=== PATIENT | male | born 1935 | race Caucasian/White ===

== ENCOUNTER 2019-04-06 10:39 | Inpatient (IN) | payer MEDICARE ==
--- OUTSIDE RECORDS SUMMARY | 2019-04-06 11:07 | XMS REPORT | Continuity of Care Document ---
:1935 External Reference #:[id number] Author Name Dayton Foy M.D. (transmitted by agent of provider Natacha Espinosa) Address [address] [place] [address] Care Team Providers Name Role Phone Fidencio Rodriguez M.D. Care Team Information Urgent Care Nurse Practitioner [phone] Problems Description No Information Available Social History Type Date Description Comments Sex Unknown Tobacco Use Start: Unknown End: Unknown Quit - age unknown ETOH Use Quit Using Alcohol. Allergies, Adverse Reactions, Alerts Description No Known Drug Allergies Medications Active Medications SIG Qnty Indications Ordering Provider Date Blood Pressure pt unaware of Unknown Medication name Gout Medication pt unaware of Unknown name Cholesterol Medication pt unaware of Unknown name Immunizations Description No Information Available Vital Signs Date Vital Result Comment 03/07/2019 12:48pm Weight 195.00 lb Height 68 inches 5'8" BMI (Body Mass Index) 29.6 kg/m2 BP Systolic 160 mmHg BP Diastolic 89 mmHg Heart Rate 41 /min O2 % BldC Oximetry 98 % Body Temperature 97.9 F Pain Level 0 01/17/2019 12:38pm Weight 195.00 lb Height 68 inches 5'8" BMI (Body Mass Index) 29.6 kg/m2 BP Systolic 164 mmHg BP Diastolic 92 mmHg Heart Rate 36 /min O2 % BldC Oximetry 98 % Body Temperature 98.2 F Pain Level 0 Results Description No Information Available Procedures Date Code Description Status 01/17/2019 99655 Tympanometry Completed 01/17/2019 02817 Audiometry, Comprehensive Completed Medical Devices Description No Information Available Encounters Type Date Location Provider Dx Diagnosis Office Visit 01/17/2019 [facility] Dayton Foy, H90.3 Sensorineural hearing 1:00p M.D. loss, bilateral H61.23 Impacted cerumen, bilateral Assessments Date Code Description Provider 01/17/2019 H90.3 Sensorineural hearing loss, bilateral Dayton Foy M.D. 01/17/2019 H61.23 Impacted cerumen, bilateral Dayton Foy M.D. Plan of Treatment Future Appointment(s):04/25/2019 12:00 pm - Dayton Foy M.D. at Main Office Functional Status Description No Information Available Mental Status Description No Information Available Referrals Description No Information Available
[2019-04-06] MEDS ORDERED: NS 0.9% 1000 ML** 1,000 ML IV ONE (11:19)
--- NOTE | 2019-04-06 11:28 | ED ---
Syncope/Near Syncope - HPI Summary HPI Summary: This pt is an 83 Y/O M presenting to [facility] by EMS and accompanied by his son for a CC of a syncopal episode that occurred while he was in [facility] today [employer]. His son states that he stood up and then went unconscious. He denies any CP, SOB , dizziness, N/V, fevers, chills, and headaches. He has no known aggravating or alleviating symptoms. He has a PMHx of hypertension. 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 He - Allergies/Home Medications Allergies/Adverse Reactions: Allergies Allergy/AdvReac Type Severity Reaction Status Date / Time No Known Allergies Allergy Verified 04/06/19 12:13 Home Medications: Home Medications Allopurinol TAB* [Zyloprim 100 MG TAB*] 200 mg PO DAILY 04/06/19 [History Confirmed 04/06/19] Atenolol TAB* [Tenormin TAB* 25 MG] 50 mg PO DAILY 04/06/19 [History Confirmed 04/06/19] Atorvastatin* [Lipitor*] 40 mg PO DAILY 04/06/19 [History Confirmed 04/06/19] Cyanocobalamin TAB* [Vitamin B12 TAB*] 3,000 mcg PO DAILY 04/06/19 [History Confirmed 04/06/19] cloNIDine TAB* [Catapres 0.1 MG TAB*] 0.2 mg PO DAILY 04/06/19 [History Confirmed 04/06/19] PMH/Surg Hx/FS Hx/Imm Hx Previously Healthy: Yes Endocrine/Hematology History: Denies: Hx Diabetes Cardiovascular History: Reports: Hx Hypertension - Surgical History Surgical History: None - Immunization History Immunizations Up to Date: Yes Infectious Disease History: No Infectious Disease History: Denies: Traveled Outside the [place] in Last 30 Days - Family History Known Family History: Positive: Hypertension, Diabetes, Other - CA - Social History Occupation: Retired Lives: With Family Alcohol Use: None Hx Substance Use: No Substance Use Type: Reports: None Hx Tobacco Use: Yes Smoking Status (MU): Former Smoker Household Exposure: No Review of Systems Negative: Fever, Chills Negative: Chest Pain Negative: Shortness Of Breath Negative: Vomiting, Nausea Neurological: Negative - dizzy Positive: Syncope. Negative: Headache All Other Systems Reviewed And Are Negative: Yes Physical Exam - Summary Physical Exam Summary: VITAL SIGNS: Reviewed. GENERAL: Patient is a well-developed and nourished male who is lying comfortable in the stretcher. Patient is not in any acute respiratory distress. HEAD AND FACE: No signs of trauma. No ecchymosis, hematomas or skull depressions. No sinus tenderness. EYES: PERRLA, EOMI x 2, No injected conjunctiva, no nystagmus. EARS: Hearing grossly intact. Ear canals and tympanic membranes are within normal limits. MOUTH: Oropharynx within normal limits. NECK: Supple, trachea is midline, no adenopathy, no JVD, no carotid bruit, no c- spine tenderness, neck with full ROM CHEST: Symmetric, no tenderness at palpation LUNGS: Clear to auscultation bilaterally. No wheezing or crackles. CVS: Bradycardia and a regular rhythm, S1 and S2 present, no murmurs or gallops appreciated. ABDOMEN: Soft, non-tender. No signs of distention. No rebound no guarding, and no masses palpated. Bowel sounds are normal. EXTREMITIES: FROM in all major joints, no edema, no cyanosis or clubbing. NEURO: Alert and oriented x 3. No acute neurological deficits. Speech is normal and follows commands. SKIN: Dry and warm Triage Information Reviewed: Yes Vital Signs On Initial Exam: Initial Vitals Temp Pulse Resp BP Pulse Ox 97.7 F 42 18 111/65 96 04/06/19 10:54 04/06/19 10:54 04/06/19 10:54 04/06/19 10:54 04/06/19 10:54 Vital Signs Reviewed: Yes Procedures - Sedation Patient Received Moderate/Deep Sedation with Procedure: No Diagnostics - Vital Signs Vital Signs Temp Pulse Resp BP Pulse Ox 04/06/19 10:54 97.7 F 42 18 111/65 96 - Laboratory Result Diagrams: 04/06/19 11:43 04/06/19 14:22 Lab Statement: Any lab studies that have been ordered have been reviewed, and results considered in the medical decision making process. - Radiology CXR Radiology Interpretation Completed By: Radiologist Summary of Radiographic Findings: No cvardiopulmonary disease is noted. ED physician has reviewed this report. - CT Brain CT CT Interpretation Completed By: Radiologist Summary of CT Findings: No intracranial mass or hemorrhage. ED physician has reviewed this report. - EKG 1058 Cardiac Rate: Bradycardia EKG Rhythm: Sinus Bradycardia ST Segment: Normal EKG Comparison: No Significant Change Summary of EKG Findings: NSR at 44 BPM, P waves, QRS complex, and T waves are within normal limits, T waves and intervals are normal, no ischemic changes. Interpreted by Dr. Anderson at 1100 04/06/19. 1126 Cardiac Rate: Bradycardia - 42 BPM EKG Rhythm: Sinus Bradycardia ST Segment: Normal Ectopy: None Summary of EKG Findings: NSR at 42 BPM, P waves, QRS complex, and T waves are within normal limits, T waves and intervals are normal, no ischemic changes. Interpreted by Dr. Anderson at 1130 04/06/19. Course/Dx Assessment/Plan: Patient is a 89-year-old male who presents to the emergency department with a chief complaint of having a syncopal episode while he was in [facility]. Patient has no complaints. EKG shows a sinus bradycardia at 44 bpm. Patient was placed on a security monitor, IV access was obtained and the patient was placed on IV fluids. Blood work w/o significant abnormality except for carbon dioxide 17, anion gap is 13, BUN is 34, creatinine is 3.47. Chest x-ray impression: No active cardiopulmonary disease. Head CT impression: No intracranial mass or hemorrhage. In the ED course the patient has remained stable. I discussed my physical exam and findings with Dr. Ruiz from the hospitalist services who accepted the patient for admission. - Diagnoses Provider Diagnoses: Syncope, Symptomatic bradycardia - Physician Notifications Discussed Care of Patient With: Lemuel Ruiz Time Discussed With Above Provider: 13:23 Instructed by Provider To: Admit As Inpatient Admit/Transition Orders Completed By ED Provider: Yes Discharge ED - Sign-Out/Discharge Documenting (check all that apply): Patient Departure - admitted - Discharge Plan Condition: Stable Disposition: ADMITTED TO [facility] - Billing Disposition and Condition Condition: STABLE Disposition: Admitted to [facility] - Attestation Statements Document Initiated by Chapincitoibjan: Yes Documenting Scribe: Tulio Churchill Provider For Whom Scribe is Documenting (Include Credential): Papo Anderson MD Scribe Attestation: ITulio, scribed for Papo Anderson MD on 04/06/19 at 1835. Scribe Documentation Reviewed: Yes Provider Attestation: The documentation as recorded by the Tulio fernandez accurately reflects the service I personally performed and the decisions made by ut, Papo Anderson MD Status of Scribe Document: Viewed
[2019-04-06 12:02] LABS: ABS Eosinophils 0.2 10^3/ul (0-0.6); ABS Monocytes 0.4 10^3/ul (0-0.8); ABS Neutrophils 2.4 10^3/ul (1.5-7.7); Eosinophil % 4.3 %; Hematocrit 45 % (42-52); Hemoglobin 14.4 g/dL (14.0-18.0); Mean Corpuscular HGB Conc 32 g/dL (31-36); Mean Corpuscular Hemoglobin 31 pg (27-31); Mean Corpuscular Volume 96 fL (80-94); Mean Platelet Volume 8.1 fL (7.4-10.4); Nucleated Red Blood Cells % 0.1; Platelet Count 151 10^3/uL (150-450); Red Blood Count 4.71 10^6 /uL (4.18-5.48); Red Cell Distribution Width 15 % (10-15); White Blood Count 4.1 10^3/uL (3.5-10.8)
[2019-04-06 12:13] LABS: Troponin I 0.01 ng/mL (<0.04)
[2019-04-06 12:42] LABS: Magnesium 1.9 mg/dL (1.9-2.7)
[2019-04-06 12:52] LABS: Anion Gap 13 mmol/L (2-11); CO2 Carbon Dioxide 17 mmol/L (22-32); Chloride 108 mmol/L (101-111); Potassium 4.1 mmol/L (3.5-5.0); Sodium 138 mmol/L (135-145)
[2019-04-06 12:53] LABS: ALT 13 U/L (7-52); Alkaline Phosphatase 81 U/L (34-104); BUN/Creatinine Ratio 9.8 (8-20); Blood Urea Nitrogen 34 mg/dL (6-24); EGFR African American 20.6 (>60); EGFR Non-African American 17.1 (>60); Glucose 95 mg/dL (70-100); TSH (Thyroid Stimulating Horm) 0.75 mcIU/mL (0.34-5.60)
[2019-04-06 13:18] LABS: Albumin/Globulin Ratio 1.3 (1-3); Globulin 3.1 g/dL (2-4); Total Protein 7.1 g/dL (6.4-8.9)
[2019-04-06 13:19] LABS: Calcium 10.4 mg/dL (8.6-10.3)
[2019-04-06] MEDS ORDERED: Ondansetron INJ* 2 MG/ML VIAL IV PRN (14:03)
[2019-04-06] MEDS ORDERED: Acetaminophen TAB* 325 MG PO PRN (14:03)
[2019-04-06 14:41] LABS: Activated Partial Thrombo Time 37.7 seconds (26.0-38.0); INR 1.09 (0.82-1.09)
[2019-04-06 14:53] LABS: Troponin I 0.02 ng/mL (<0.04)
[2019-04-06 16:09] LABS: EGFR African American 20.1 (>60); EGFR Non-African American 16.6 (>60)
--- NOTE | 2019-04-06 16:44 | HP ---
CC: Dr. Fidencio Rodriguez HISTORY AND PHYSICAL: DATE OF ADMISSION: 04/06/19 PRIMARY CARE PROVIDER: Dr. Fidencio Rodriguez CHIEF COMPLAINT: Syncope. HISTORY OF PRESENT ILLNESS: This is an 83-year-old male with past medical history of hypertension, hyperlipidemia, CKD, who presented to the emergency room after having a syncopal episode at [facility]. The patient reports that he woke up this morning, had breakfast and then got himself ready to go to [facility]. Throughout the entire day, he had been feeling lightheaded and feeling as if he was going to faint, he made it to [facility]. During the [facility] service, he was sitting down when other [facility] members noted that he became unresponsive. He was unresponsive for about a minute as per the documentation. There was no seizure like activity noted, there was no loss of urine or feces. When he came to, he did not have any memory of what happened. He did not have any chest pain or shortness of breath, he reports no nausea, no vomiting. In the emergency room, when I evaluated the patient he states that he is feeling kind of good right now. He reports no changes in his medications of late. There has been no fevers, no chills, no urinary symptoms. PAST MEDICAL HISTORY: Hypertension, hyperlipidemia, chronic kidney disease stage 3, gout. PAST SURGICAL HISTORY: None. HOME MEDICATIONS: Include: 1. Clonidine 0.2 mg daily. 2. Cyanocobalamin 3000 mcg daily. 3. Atenolol 50 mg daily. 4. Allopurinol 200 mg daily. 5. Atorvastatin 40 mg daily. ALLERGIES: None. FAMILY HISTORY: Mother: Had cancer as well as hypertension. Father: Stroke. SOCIAL HISTORY: The patient lives at [facility], is retired, former tobacco chewing. Currently does not smoke, no alcohol use and no more tobacco chew. ADVANCE CARE DIRECTIVE: The patient does not have any healthcare proxy, his brother will be the next step contact. Phone number is [phone] as well as [phone], the patient wishes to be full code at this point. REVIEW OF SYSTEMS: Full review of systems was done otherwise as listed in the HPI, otherwise is negative. PHYSICAL EXAMINATION GENERAL: This is an -[place] male, lying in the ER stretcher, in no acute distress. VITAL SIGNS: Blood pressure of 132/76, heart rate of 49, heart rate range has been from 39 to 69. Temperature is 97.7 Fahrenheit, respiratory rate of 16, saturation of 98% on room air. HEENT: Pupils are equal, round, reactive to light. Atraumatic, normocephalic. Oral mucosa is dry, there is no nystagmus. NECK: There is no carotid bruit. LUNGS: There is no tachypnea, no use of accessory muscles. Lungs are clear to auscultation bilaterally with no wheezing, rales, or rhonchi. HEART: There is no chest wall tenderness. Regular bradycardia, no murmurs. ABDOMEN: Bowel sounds are normoactive in all 4 quadrants. Abdomen is soft, nontender, nondistended. EXTREMITIES: There is no low extremity edema, no calf tenderness. SKIN: Poor skin turgor, there are no rashes or lesions identified. DIAGNOSTIC STUDIES/LAB DATA: Labs and imaging. The patient's WBC of 4.1, hemoglobin of 14.4, hematocrit of 45, platelets of 151. Sodium of 138, potassium 4.1, chloride of 108, bicarb of 17, BUN 34, creatinine of 3.47. GFR of 20.6, calcium of 10.4. TSH of 0.75. BNP of 20. The patient underwent an EKG, which showed sinus bradycardia. The patient had initial EKG done at 10:58 reveals sinus bradycardia with a heart rate of 44 and a repeat EKG done at 11:26 a.m. reveals sinus bradycardia at a heart rate of 42. The patient also had a CAT scan of the brain, which showed no acute intracranial pathology. The patient also had a chest x-ray which showed no active cardiopulmonary disease noted. IMPRESSION AND PLAN: 1. Syncope: Likely this is secondary to bradycardiac induced syncope. At this point, I will hold the patient's atenolol as well as clonidine. We will monitor the patient on telemetry. Orthostatic vitals are pending. We will obtain an echocardiogram. TSH is within normal limits. The patient also appears to be dehydrated. We will started the patient on IV fluids. Obtain daily EKG, monitor on telemetry. Check second and third troponin. 2. Essential hypertension: At this point, because of the patient's age and not having any heart disease or stroke history, would keep his hypertension goal at systolic of 150. I will hold his medications as described above due to bradycardia. If blood pressure becomes an issue and he becomes hypertensive, I would recommend starting the patient on chlorthalidone versus HCTZ as well as an amlodipine and also consider starting BRYN or ARB inhibitor given the fact he also has chronic kidney disease. 3. History of hyperlipidemia: Continue statins. 4. History of gout: Continue allopurinol. 5. Chronic kidney disease 3: At this point, the does not meet criteria for acute kidney injury, however, does appear to be dehydrated. Start the patient on IV fluids, monitor his kidney functions, monitor fluid status. 6. We will start the patient on regular diet. Activity as tolerated. 7. DVT prophylaxis: Sequential compression device. [id number]/[facility] #: [id number] FRANCO
[2019-04-06] MEDS: NS 0.9% 1000 ML** 1,000 ML IV SCH (16:58)
[2019-04-06] MEDS: Heparin VIAL(*) 5000 UNITS/ML VIAL (FIVE THOUSAND) SUBCUT SCH (21:43)
[2019-04-07] MEDS: NS 0.9% 1000 ML** 1,000 ML IV SCH ×2 (07:11→20:48)
[2019-04-07] MEDS: Heparin VIAL(*) 5000 UNITS/ML VIAL (FIVE THOUSAND) SUBCUT SCH ×2 (08:44→20:51)
[2019-04-07] MEDS: Atorvastatin* 40 MG TAB PO SCH (08:44)
[2019-04-07] MEDS: Allopurinol TAB* 100 MG PO SCH (08:45)
[2019-04-07] MEDS ORDERED: Cyanocobalamin TAB* 500 MCG PO SCH (09:00)
--- NOTE | 2019-04-07 11:46 | ECHO ---
*[facility]* [place] [address] Fax #: [phone] Transthoracic Echocardiogram Patient: Bradley العلي : 1935 Study Date: 04/07/2019 Age: 83 Gender: M HR: 57 bpm Height: 67 in /170.2 cm BSA: 1.91 m^2 Weight: 174.6 lb /79.4 kg BMI: 27.4 kg/m^2 *Gas Engine Performance Engineer: * Rosa Sullivan [facility] *Referring Physician: * Anushka Lu *Reading Physician: * Moshe Marrero MD Indications: Syncope. History: Functional status: Renal failure. Risk factors: Hypertension. Dyslipidemia. Conclusions Summary: - Left ventricle: Systolic function is normal. The estimated ejection fraction is 60-65%. Wall motion is normal; there are no regional wall motion abnormalities. - Right ventricle: Systolic function is normal. Systolic pressure is within the normal range. - Mitral valve: There is trace to mild regurgitation. - Aortic valve: There is no evidence of stenosis. There is trace to mild regurgitation. - Tricuspid valve: There is mild regurgitation. - Pericardium, extracardiac: There is no significant pericardial effusion. - Pulmonary arteries: Systolic pressure is within the normal range. - Study data: No prior study is available for comparison. Study data: Transthoracic echocardiogram. Procedure: Transthoracic echocardiography was performed. Image quality was good. Complete 2D, spectral Doppler, and color flow Doppler. Location: Bedside. Patient status: Inpatient. Patient room number: 448-01. No prior study is available for comparison. Rhythm: Bradycardia. Findings Left ventricle: The cavity size is normal. Wall thickness is mildly increased. Systolic function is normal. The estimated ejection fraction is 60-65%. Wall motion is normal; there are no regional wall motion abnormalities. There is no consistent Doppler evidence of clinically significant diastolic dysfunction. Right ventricle: The cavity size is mildly dilated. Systolic function is normal. Systolic pressure is within the normal range. Left atrium: The atrium is mildly dilated. Right atrium: The atrium is normal in size. Mitral valve: The leaflets are mildly thickened. There is no evidence of stenosis. There is trace to mild regurgitation. Aortic valve: The valve is trileaflet. The leaflets are mildly thickened. There is no evidence of stenosis. There is trace to mild regurgitation. Tricuspid valve: The leaflets are normal thickness. There is no evidence of stenosis. There is mild regurgitation. Pulmonic valve: The leaflets are normal thickness. There is no evidence of stenosis. There is trace regurgitation. Aorta: Aortic root: The aortic root is appears normal. Ascending aorta: The ascending aorta is appears normal. Aortic arch: The aortic arch is appears normal. Pericardium: There is no significant pericardial effusion. Pulmonary arteries: The main pulmonary artery is normal-sized. Systolic pressure is within the normal range. Systemic veins: Inferior vena cava: The vessel is normal in size. There is (>= 50%) respiratory change in the IVC dimension. Measurements Left ventricle Value Ref Aortic valve Value Ref REGULO, LAX 4.3 cm 4.2 - 5.8 Stephanie diam, ED 2.1 cm ----- ESD, LAX 2.5 cm 2.5 - 4.0 Peak v, S 1.63 m/sec ----- FS, LAX 42 % 25 - 43 VTI, S 28.4 cm ----- PW, ED, LAX (H) 1.1 cm 0.6 - 1.0 Mean grad, S 6.0 mm Hg ----- FS 42 % 25 - 43 Peak grad, S 10.6 mm Hg ----- PW, ED (H) 1.1 cm 0.6 - 1.0 LVOT/AV, VTI ratio 0.88 ----- PW/ID, ED 0.27 E', lat stephanie, TDI (L) 6.3 cm/sec >=10.0 Mitral valve Value Ref E/e', lat stephanie, 15 Peak E 0.94 m/sec ----- TDI Peak A 0.84 m/sec ----- E', med stephanie, TDI (L) 5.8 cm/sec >=7.0 Decel time 250 ms --- -- E/e', med stephanie, 16 Peak grad, D 3.5 mm Hg ----- TDI Peak E/A ratio 1.1 ----- E', avg, TDI 6.1 cm/sec E/e', avg, TDI (H) 15 <=14 Pulmonic valve Value Ref Peak v, S 0.68 m/sec ----- LVOT Value Ref Peak grad, S 2.0 mm Hg ----- Peak gabriel, S 1.1 m/sec VTI, S 25.0 cm Tricuspid valve Value Ref Mean grad, S 2 mm Hg TR peak v 2.74 m/sec <=2.8 Peak RV-RA grad, S 30 mm Hg ----- Ventricular septum Value Ref IVS, ED (H) 1.2 cm 0.6 - 1.0 Aortic root Value Ref Root diam 3.4 cm <4.1 Right ventricle Value Ref Root max diam, ED 3.4 cm <4.1 REGULO, LAX 4.0 cm REGULO minor ax, A4C (H) 3.8 cm 1.9 - 3.5 Ascending aorta Value Ref mid AAo AP diam, S 3.4 cm ----- Pressure, S 33 mm Hg Aortic arch Value Ref Left atrium Value Ref Arch diam 2.7 cm ----- AP dim, ES 3.20 cm 3.00 - 4.00 Decending aorta Value Ref ML dim, A4C 3.8 cm Tutu peak gabriel 0.64 m/sec ----- SI dim, A4C 5.4 cm Vol/bsa, ES, 1-p 26 ml/m^2 12 - 37 Pulmonary artery Value Ref A4C Pressure, S 31.0 mm Hg ----- Vol/bsa, ES, A/L (H) 40 ml/m^2 16 - 34 Inferior vena cava Value Ref Right atrium Value Ref Diam 2.0 cm ----- SI dim, ES 4.5 cm 3.4 - 5.3 ML dim, ES, A4C 4.4 cm 2.6 - 4.4 SI dim, ES, A4C 4.5 cm 3.4 - 5.3 Estimated RAP 3 mm Hg Legend: (L) and (H) dede values outside specified reference range. Prepared and electronically signed by Moshe Marrero MD 04/07/2019 11:46
--- NOTE | 2019-04-07 11:53 | PN ---
Subjective Date of Service: 04/07/19 Interval History: Patient came in after a syncopal event. He states he does not remember this event. He notes that he has had no dizziness, lightheadedness, syncopal events since then. He denies CP, SOB. Objective Active Medications: Acetaminophen (Tylenol Tab*) 650 mg PO Q6H PRN Allopurinol (Zyloprim Tab*) 200 mg PO DAILY DM Atorvastatin Calcium (Lipitor*) 40 mg PO DAILY DM Heparin Sodium (Porcine) (Heparin Vial(*)) 5,000 units SUBCUT Q12HR DM Sodium Chloride (Ns 0.9% 1000 Ml) 1,000 mls @ 75 mls/hr IV PER RATE DM Ondansetron HCl (Zofran Inj*) 4 mg IV Q6H PRN Vital Signs: Temp Pulse Resp BP Pulse Ox 97 F 44 20 145/73 100 04/07/19 07:58 04/07/19 07:58 04/07/19 07:58 04/07/19 07:58 04/07/19 07:58 Oxygen Devices in Use Now: None Appearance: Pt is sitting up in bed. He appears comfortable, in no acute distress. Eyes: No Scleral Icterus, PERRLA Ears/Nose/Mouth/Throat: NL Teeth, Lips, Gums, Clear Oropharnyx, Mucous Membranes Moist Neck: NL Appearance and Movements; NL JVP, Trachea Midline Respiratory: Symmetrical Chest Expansion and Respiratory Effort, Clear to Auscultation Cardiovascular: NL Sounds; No Murmurs; No JVD, No Edema, - - Bradycardia Abdominal: NL Sounds; No Tenderness; No Distention, No Hepatosplenomegaly Extremities: No Edema, No Clubbing, Cyanosis Neurological: Alert and Oriented x 3 Result Diagrams: 04/09/19 08:51 04/09/19 08:51 Assess/Plan/Problems-Billing Assessment: 83 yom PMHx HTN, HLD, CKD III presents after syncopal event. Tele shows sinus claude with up to 2.9 second pause. - Patient Problems (1) Syncope and collapse Comment: -Pt with syncope and collapse; does not recall event -Tele shows sinus claude, 2.9 second pause -Cardiology consulted -ECHO EF 60-65% -Continue IVF -Continue to hold atenolol, catapres, as this may have contributed to bradycardia (2) Hypertension Comment: -SBP 120-145's -Continue to hold home medications and monitor need for additional antihypertensives (3) HLD (hyperlipidemia) Comment: -Continue statin (4) Gout Comment: -Continue allopurinol (5) CKD (chronic kidney disease), stage III Comment: -CR at baseline (6) DVT prophylaxis Comment: -Heparin (7) Full code status Status and Disposition: Inpatient. Discharge when medically stable.
--- NOTE | 2019-04-07 17:11 | CONS ---
CC: Dr. Fidencio Rodriguez * CARDIOLOGY CONSULTATION: DATE OF CONSULT: 04/07/19 INDICATION FOR CONSULTATION: Syncope, bradycardia. HISTORY OF PRESENT ILLNESS: The patient is an 83-year-old gentleman with a history of hypertension, renal insufficiency, who came to the emergency room after presumed syncopal episode at [employer]. When speaking with the patient, he is not aware of what happened today. Apparently, he was at [employer] and had a witnessed syncopal episode. I do not have any documentation other than the history and physical. The patient was reportedly unresponsive for about a minute. There was no seizure activity. The patient came to the emergency room. In the emergency room, he was noted to be bradycardiac at 40 beats per minute. He denied any chest pain. He denied any palpitations. No orthopnea or PND. PAST MEDICAL HISTORY: Significant for: 1. Hypertension. 2. Hyperlipidemia. 3. Renal insufficiency. 4. Gout. PAST SURGICAL HISTORY: None. MEDICATIONS: Outpatient medications: 1. Clonidine 0.2 mg a day. 2. Cyanocobalamin 3000 mcg a day. 3. Atenolol 50 mg a day. 4. Allopurinol 20 mg a day. 5. Atorvastatin 40 mg a day. ALLERGIES: No known drug allergies. FAMILY HISTORY: Mother had a history of cancer and hypertension. Father had a history of stroke. SOCIAL HISTORY: He lives at [facility]. He is retired. He used to chew tobacco but does not anymore. He denies any smoking of tobacco. Rare alcohol. REVIEW OF SYSTEMS: Negative for fevers and chills. Negative for changes in bowel or bladder habits. Negative for change in weight. Other 12-point review is unremarkable. PHYSICAL EXAMINATION: Height is 5 feet 7 inches, weight is 188 pounds. Temperature 97.3, heart rate is 42, blood pressure 140/73, respiratory rate is 20, oxygen saturation 100% on 2 L. Sclerae anicteric. Oropharynx is pink without erythema. Carotids are 2+ without bruits. JVD is normal. Thyroid is normal. Cardiac Exam: S1, S2 without any murmurs, rubs, or gallops. Lungs are clear to auscultation bilaterally. There is no dullness to percussion. Abdomen is soft, nontender, nondistended with normoactive bowel sounds. Extremities show no edema. He has 1+ pulses in his dorsalis pedis and popliteal. The patient is awake, alert, and oriented. LABORATORY DATA/DIAGNOSTIC STUDIES: CBC within normal limits. Chemistry is within normal limits. BUN 34, creatinine 3.4, which is slightly worse than his baseline of 2.7 to 3. AST and ALT are normal. BNP is normal at 20. TSH is normal at 0.75. Echocardiogram showed normal LV size and systolic function. No significant valvular abnormalities. No pericardial effusion. IMPRESSION: This is an 83-year-old gentleman with a history of hypertension and renal insufficiency, who is admitted to the hospital because of the syncopal episode. While he is here in the hospital, his baseline heart rate showed sinus bradycardia at around 40 beats per minute. The patient is on atenolol and clonidine, which can lower the heart rate, both of which have been stopped at this point. For now my recommendation is to observe the patient for the next 24 to 48 hours , see what his heart rate does off of his rate lowering medications and then consider replacements for these medications for treatment of his hypertension. If his bradycardia persists, the patient would likely need a pacemaker because of his witnessed syncopal episode. [id number]/[facility] #: [id number] FRANCO
[2019-04-08] MEDS ORDERED: Influenza VAC *QUAD* 2019-20* 0.5 ML SYRINGE IM ONE (09:00)
[2019-04-08] MEDS ORDERED: Pneumococcal *Vac Polyvalent 0.5 ML VIAL IM ONE (09:00)
[2019-04-08] MEDS: Atorvastatin* 40 MG TAB PO SCH (10:16)
[2019-04-08] MEDS: amLODIPine TAB* 5 MG PO SCH (10:16)
[2019-04-08] MEDS: Allopurinol TAB* 100 MG PO SCH (10:16)
[2019-04-08] MEDS: Heparin VIAL(*) 5000 UNITS/ML VIAL (FIVE THOUSAND) SUBCUT SCH ×2 (10:17→21:14)
[2019-04-08] MEDS: NS 0.9% 1000 ML** 1,000 ML IV SCH ×2 (10:21→23:21)
[2019-04-08 10:35] LABS: ABS Eosinophils 0.3 10^3/ul (0-0.6); ABS Lymphocytes 1.4 10^3/ul (1.0-4.8); ABS Monocytes 0.3 10^3/ul (0-0.8); ABS Neutrophils 2.1 10^3/ul (1.5-7.7); Eosinophil % 6.1 %; Hematocrit 41 % (42-52); Hemoglobin 13.4 g/dL (14.0-18.0); Lymphocyte % 34.1 %; Mean Corpuscular HGB Conc 33 g/dL (31-36); Mean Corpuscular Hemoglobin 31 pg (27-31); Mean Corpuscular Volume 94 fL (80-94); Mean Platelet Volume 8.7 fL (7.4-10.4); Nucleated Red Blood Cells % 0.1; Platelet Count 144 10^3/uL (150-450); Red Blood Count 4.35 10^6 /uL (4.18-5.48); Red Cell Distribution Width 15 % (10-15); White Blood Count 4.1 10^3/uL (3.5-10.8)
[2019-04-08 10:52] LABS: Albumin 3.4 g/dL (3.2-5.2); Albumin/Globulin Ratio 1.1 (1-3); BUN/Creatinine Ratio 9.5 (8-20); Calcium 9.5 mg/dL (8.6-10.3); EGFR African American 23.9 (>60); EGFR Non-African American 19.7 (>60); Magnesium 1.6 mg/dL (1.9-2.7); Phosphorus 2.5 mg/dL (2.5-5.0); Potassium 3.9 mmol/L (3.5-5.0); Total Bilirubin 0.4 mg/dL (0.2-1.0); Total Protein 6.4 g/dL (6.4-8.9)
[2019-04-08] MEDS ORDERED: Magnesium Sulfate 1 GM IV* 1 GM/100 ML BAG IV ONE (14:12)
[2019-04-08] MEDS ORDERED: ceFAZolin 1 GM/10 ML flush(*) SYRINGE for pocket flush (cardiology) FLUSH ONE (15:59)
[2019-04-09] MEDS ORDERED: ceFAZolin 2 GM PREMIX in ORs 2 GM/50 ML BAG IVPB ONE (08:00)
[2019-04-09] MEDS ORDERED: Diazepam TAB(*) 5 MG PO ONE (08:00)
[2019-04-09] MEDS ORDERED: ceFAZolin VIAL 1 GM in NS *SYRINGE * * 10 ML ONE (08:00)
[2019-04-09] MEDS ORDERED: Diazepam TAB(*) 5 MG ONE (08:46)
[2019-04-09] MEDS ORDERED: Pneumococcal *Vac Polyvalent 0.5 ML VIAL IM ONE (09:00)
[2019-04-09 09:04] LABS: ABS Basophils 0.1 10^3/ul (0-0.2); ABS Eosinophils 0.2 10^3/ul (0-0.6); ABS Lymphocytes 1.6 10^3/ul (1.0-4.8); ABS Monocytes 0.4 10^3/ul (0-0.8); ABS Neutrophils 2.8 10^3/ul (1.5-7.7); Eosinophil % 4.4 %; Hematocrit 43 % (42-52); Hemoglobin 14.2 g/dL (14.0-18.0); Lymphocyte % 31.5 %; Mean Corpuscular HGB Conc 33 g/dL (31-36); Mean Corpuscular Hemoglobin 31 pg (27-31); Mean Corpuscular Volume 94 fL (80-94); Mean Platelet Volume 8.4 fL (7.4-10.4); Nucleated Red Blood Cells % 0.3; Platelet Count 153 10^3/uL (150-450); Red Blood Count 4.62 10^6 /uL (4.18-5.48); Red Cell Distribution Width 15 % (10-15); White Blood Count 5.1 10^3/uL (3.5-10.8)
[2019-04-09 09:14] LABS: Calcium 9.5 mg/dL (8.6-10.3); Magnesium 1.8 mg/dL (1.9-2.7); Potassium 4.2 mmol/L (3.5-5.0)
[2019-04-09 09:20] LABS: EGFR African American 26.6 (>60); EGFR Non-African American 21.9 (>60)
[2019-04-09 09:21] LABS: Urine Appearance Clear; Urine Bilirubin Negative (Negative); Urine Blood Negative (Negative); Urine Color Straw; Urine Glucose Negative (Negative); Urine Ketones Negative (Negative); Urine Nitrite Negative (Negative); Urine Protein Negative (Negative); Urine Specific Gravity 1.009 (1.010-1.030); Urine Urobilinogen Negative (Negative)
[2019-04-09] MEDS ORDERED: Midazolam* 1 MG/ML 5 ML VIAL (5 MG) ONE ×2 (09:55→11:29)
[2019-04-09] MEDS ORDERED: Lidocaine 1% INJ* 10 MG/ML 30 ML SDV ONE ×2 (09:55→10:51)
[2019-04-09] MEDS ORDERED: fentaNYL* 50 MCG/ML 2 ML VIAL (100 MCG VIAL) ONE (09:55)
[2019-04-09] MEDS ORDERED: Iodixanol 320 (CONTRAST) 100 ML SDV ONE (10:01)
[2019-04-09] MEDS ORDERED: Atenolol TAB* 50 MG PO ONE (14:00)
[2019-04-09] MEDS: amLODIPine TAB* 5 MG PO SCH (14:01)
[2019-04-09] MEDS: Allopurinol TAB* 100 MG PO SCH (14:01)
[2019-04-09] MEDS: Atorvastatin* 40 MG TAB PO SCH (14:01)
[2019-04-09] MEDS ORDERED: cloNIDine TAB* 0.1 MG PO ONE (15:20)
--- NOTE | 2019-04-09 18:56 | PN ---
Subjective Date of Service: 04/09/19 - CC: syncope Interval History: Pt very CHITIMACHA, hard to get a history from. Pt seen early this AM prior to pacer implant, no new c/o. Procedure details, risks benefits discussed. Post procedure the patient noted some mild incisional tenderness, otherwise was feeling well. Medications Active Medications: Acetaminophen (Tylenol Tab*) 650 mg PO Q6H PRN PRN Reason: MILD PAIN or TEMP > 100.4 Allopurinol (Zyloprim Tab*) 200 mg PO DAILY [facility] Last Admin: 04/09/19 14:01 Dose: 200 mg Amlodipine Besylate (Norvasc Tab*) 5 mg PO DAILY [facility] Last Admin: 04/09/19 14:01 Dose: 5 mg Atorvastatin Calcium (Lipitor*) 40 mg PO DAILY [facility] Last Admin: 04/09/19 14:01 Dose: 40 mg Sodium Chloride (Ns 0.9% 1000 Ml) 1,000 mls @ 75 mls/hr IV PER RATE [facility] Last Admin: 04/08/19 23:21 Dose: 75 mls/hr Cefazolin Sodium 1 gm/ Sodium (Chloride) 50 mls @ 200 mls/hr IVPB Q8H [facility] Stop: 04/10/19 10:14 Ondansetron HCl (Zofran Inj*) 4 mg IV Q6H PRN PRN Reason: NAUSEA Objective Vital Signs: Temp Pulse Resp BP Pulse Ox 97.5 F 60 20 165/87 94 04/09/19 07:23 04/09/19 16:06 04/09/19 14:02 04/09/19 17:23 04/09/19 16:06 Oxygen Devices in Use Now: None Appearance: Elderly gentleman, very CHITIMACHA, once he understands the questions very cooperative. NAD. Eyes: PERRLA Ears/Nose/Mouth/Throat: Clear Oropharnyx Neck: NL Appearance and Movements; NL JVP, Trachea Midline Respiratory: Symmetrical Chest Expansion and Respiratory Effort - diminished BS bases. Cardiovascular: RRR - high pitched SM LSB and soft low pithched murmur LSB. Abdominal: NL Sounds; No Tenderness; No Distention, No Hepatosplenomegaly Extremities: No Edema, No Clubbing, Cyanosis Skin: No Rash or Ulcers Neurological: Alert and Oriented x 3 - Severe CHITIMACHA. Lines/Tubes/Other Access: Clean, Dry and Intact Peripheral IV Laboratory Results: 04/09/19 08:51 04/09/19 08:51 INR (Anticoag Therapy) 1.09 (0.82-1.09) 04/06/19 14:22 APTT 37.7 seconds (26.0-38.0) 04/06/19 14:22 Total Bilirubin 0.40 mg/dL (0.2-1.0) 04/08/19 10:01 AST 19 U/L (13-39) 04/08/19 10:01 ALT 11 U/L (7-52) 04/08/19 10:01 Alkaline Phosphatase 65 U/L (34-104) 04/08/19 10:01 B-Natriuretic Peptide 20 pg/mL (<=100) 04/06/19 12:27 Total Protein 6.4 g/dL (6.4-8.9) 04/08/19 10:01 Albumin 3.4 g/dL (3.2-5.2) 04/08/19 10:01 Globulin 3.0 g/dL (2-4) 04/08/19 10:01 Albumin/Globulin Ratio 1.1 (1-3) 04/08/19 10:01 TSH 0.75 mcIU/mL (0.34-5.60) 04/06/19 11:43 04/06/19 04/06/19 04/06/19 11:43 14:22 20:31 Troponin I 0.01 0.02 0.01 Diagnostic Imaging: Patient Name: BRADLEY MALIK JR Medical Record#: [id number] Ordering Physician: Nina Sanders MD Acct.#: [id number] : 1935 Age: 83 Sex: M Location: [address] [place] [address]/TELEMETRY Exam Date: 04/09/19 1216 ADM Status: ADM IN Order Information: CHEST AP OR PORT Accession Number: [id number] CPT: 99178 Indication: Status post pacemaker implant. Single frontal view of the chest performed at 1503 hours was reviewed. Comparison is made with previous exam dated April 06, 2019. Cardiomegaly is noted. Interstitial edema consistent with vascular congestion is noted. Pacemaker leads are in place. No pneumothorax is noted. IMPRESSION: CARDIOMEGALY WITH INTERSTITIAL EDEMA. PACEMAKER LEADS ARE IN PLACE. NO PNEUMOTHORAX IS NOTED. <Electronically signed by Penny Garnica MD in OV> 04/09/19 1521 Dictated By: Penny Garnica MD *[facility]* [place] [address] Fax #: [phone] Transthoracic Echocardiogram Patient: Bradley Malik : 1935 Study Date: 04/07/2019 Summary: - Left ventricle: Systolic function is normal. The estimated ejection fraction is 60-65%. Wall motion is normal; there are no regional wall motion abnormalities. - Right ventricle: Systolic function is normal. Systolic pressure is within the normal range. - Mitral valve: There is trace to mild regurgitation. - Aortic valve: There is no evidence of stenosis. There is trace to mild regurgitation. - Tricuspid valve: There is mild regurgitation. - Pericardium, extracardiac: There is no significant pericardial effusion. - Pulmonary arteries: Systolic pressure is within the normal range. - Study data: No prior study is available for comparison. EKG Data: No magnet: A pacing, wales QRS, at lower programmed rate. + Manget: Dual chamber pacing at magnet rate. Assessment/Plan 83 yo with SSS, syncope with persistent bradycardia off clonidine and BB who underwent dual chamber pacer implant today. Off Atenalol and Clonidine since admission. I started Carvedilol tonigh for BP, he is at risk for remound HTN. Needs f/u wound check in 1 week. Needs to go home with antibiotics at doses for CKD: Keflex 250 mg BID. Pt will f/u with Dr Marrero.
[2019-04-09] MEDS: ceFAZolin VIAL(*) 1 GM in NS 0.9% 50 ML* 50 ML IVPB SCH (19:12)
[2019-04-09] MEDS: NS 0.9% 1000 ML** 1,000 ML IV SCH (19:37)
[2019-04-09] MEDS ORDERED: Heparin VIAL(*) 5000 UNITS/ML VIAL (FIVE THOUSAND) SUBCUT SCH (21:00)
[2019-04-09] MEDS: Carvedilol TAB* 25 MG PO SCH (21:29)
[2019-04-10] MEDS: ceFAZolin VIAL(*) 1 GM in NS 0.9% 50 ML* 50 ML IVPB SCH ×2 (02:30→09:41)
[2019-04-10] MEDS: Carvedilol TAB* 25 MG PO SCH (09:24)
[2019-04-10] MEDS: Atorvastatin* 40 MG TAB PO SCH (09:24)
[2019-04-10] MEDS: Allopurinol TAB* 100 MG PO SCH (09:25)
[2019-04-10] MEDS: amLODIPine TAB* 5 MG PO SCH (09:25)
--- NOTE | 2019-04-10 09:45 | PN ---
Subjective Date of Service: 04/10/19 - CC: syncope, SSS. Interval History: Pt s/p dual chamber pacer implant 04/09/19 for SSS. No c/o this AM, hard to communicate due to hearing loss, profound. Medications Active Medications: Acetaminophen (Tylenol Tab*) 650 mg PO Q6H PRN PRN Reason: MILD PAIN or TEMP > 100.4 Allopurinol (Zyloprim Tab*) 200 mg PO DAILY [facility] Last Admin: 04/10/19 09:25 Dose: 200 mg Amlodipine Besylate (Norvasc Tab*) 5 mg PO DAILY [facility] Last Admin: 04/10/19 09:25 Dose: 5 mg Atorvastatin Calcium (Lipitor*) 40 mg PO DAILY [facility] Last Admin: 04/10/19 09:24 Dose: 40 mg Carvedilol (Coreg Tab*) 12.5 mg PO BID [facility] Last Admin: 04/10/19 09:24 Dose: 12.5 mg Sodium Chloride (Ns 0.9% 1000 Ml) 1,000 mls @ 75 mls/hr IV PER RATE [facility] Last Admin: 04/09/19 19:37 Dose: 75 mls/hr Cefazolin Sodium 1 gm/ Sodium (Chloride) 50 mls @ 200 mls/hr IVPB Q8H [facility] Stop: 04/10/19 10:14 Last Admin: 04/10/19 09:41 Dose: 200 mls/hr Ondansetron HCl (Zofran Inj*) 4 mg IV Q6H PRN PRN Reason: NAUSEA Objective Vital Signs: Temp Pulse Resp BP Pulse Ox 97.8 F 61 16 156/84 99 04/10/19 07:00 04/10/19 07:00 04/10/19 07:00 04/10/19 07:00 04/10/19 07:00 Vital Signs - 12 hr Temp Pulse Resp BP Pulse Ox 04/10/19 07:00 97.8 F 61 16 156/84 99 04/10/19 06:27 100 04/10/19 03:00 97.9 F 95 20 164/92 100 04/09/19 23:00 97.8 F 60 21 129/70 98 04/09/19 22:59 135/83 04/09/19 22:02 143/79 Oxygen Devices in Use Now: None Appearance: Elderly gentleman, very [place], seated, shoulder immobilizer on, comfortable. Eyes: PERRLA Ears/Nose/Mouth/Throat: Clear Oropharnyx Neck: NL Appearance and Movements; NL JVP, Trachea Midline Respiratory: Symmetrical Chest Expansion and Respiratory Effort - diminished BS bases., Clear to Auscultation Cardiovascular: RRR - no murmur heard this AM Abdominal: NL Sounds; No Tenderness; No Distention, No Hepatosplenomegaly Extremities: No Edema, No Clubbing, Cyanosis Skin: No Rash or Ulcers - incision w/o evidence of infection, no hematoma, no ecchymosis. Neurological: Alert and Oriented x 3 - Severe [place]. Lines/Tubes/Other Access: Clean, Dry and Intact Peripheral IV Laboratory Results: 04/09/19 08:51 04/09/19 08:51 INR (Anticoag Therapy) 1.09 (0.82-1.09) 04/06/19 14:22 APTT 37.7 seconds (26.0-38.0) 04/06/19 14:22 Total Bilirubin 0.40 mg/dL (0.2-1.0) 04/08/19 10:01 AST 19 U/L (13-39) 04/08/19 10:01 ALT 11 U/L (7-52) 04/08/19 10:01 Alkaline Phosphatase 65 U/L (34-104) 04/08/19 10:01 B-Natriuretic Peptide 20 pg/mL (<=100) 04/06/19 12:27 Total Protein 6.4 g/dL (6.4-8.9) 04/08/19 10:01 Albumin 3.4 g/dL (3.2-5.2) 04/08/19 10:01 Globulin 3.0 g/dL (2-4) 04/08/19 10:01 Albumin/Globulin Ratio 1.1 (1-3) 04/08/19 10:01 TSH 0.75 mcIU/mL (0.34-5.60) 04/06/19 11:43 04/06/19 04/06/19 04/06/19 11:43 14:22 20:31 Troponin I 0.01 0.02 0.01 Diagnostic Imaging: Patient Name: BRADLEY MALIK Medical Record#: [id number] Ordering Physician: Nina Sanders MD Acct.#: [id number] : 1935 Age: 83 Sex: M Location: [address] [place] [address] - MEDICAL/TELEMETRY Exam Date: 04/09/19 1216 ADM Status: ADM IN Order Information: CHEST AP OR PORT Accession Number: [id number] CPT: 62441 Indication: Status post pacemaker implant. Single frontal view of the chest performed at 1503 hours was reviewed. Comparison is made with previous exam dated April 06, 2019. Cardiomegaly is noted. Interstitial edema consistent with vascular congestion is noted. Pacemaker leads are in place. No pneumothorax is noted. IMPRESSION: CARDIOMEGALY WITH INTERSTITIAL EDEMA. PACEMAKER LEADS ARE IN PLACE. NO PNEUMOTHORAX IS NOTED. <Electronically signed by Penny Garnica MD in OV> 04/09/19 1521 Dictated By: Penny Garnica MD *[facility]* [place] [address] Fax #: [phone] Transthoracic Echocardiogram Patient: Bradley Malik : 1935 Study Date: 04/07/2019 Summary: - Left ventricle: Systolic function is normal. The estimated ejection fraction is 60-65%. Wall motion is normal; there are no regional wall motion abnormalities. - Right ventricle: Systolic function is normal. Systolic pressure is within the normal range. - Mitral valve: There is trace to mild regurgitation. - Aortic valve: There is no evidence of stenosis. There is trace to mild regurgitation. - Tricuspid valve: There is mild regurgitation. - Pericardium, extracardiac: There is no significant pericardial effusion. - Pulmonary arteries: Systolic pressure is within the normal range. - Study data: No prior study is available for comparison. CXR 04/10/19: good lead placement, mild CHF, no pneumothorax. EKG Data: No magnet: A pacing, torres martinez QRS, at lower programmed rate. + Manget: Dual chamber pacing at magnet rate. pacer interrogation today: Lead sense pace impedance. A 3 mV 0.5mV@0.5 ms 418 Ohms V 5.6 mV 0.5mV@ 0.5 ms 5890 Ohms. Assessment/Plan 83 yo with SSS, syncope with persistent bradycardia off clonidine and BB who underwent dual chamber pacer 1. CXR and thresholds good. Needs f/u wound check in 1 week. Needs to go home with antibiotics at doses for CKD: Keflex 250 mg BID. Pt will f/u with Dr Marrero.
--- NOTE | 2019-04-10 13:12 | DS ---
CC: Dr. Marrero; Dr. Rodriguez DISCHARGE SUMMARY: DATE OF ADMISSION: 04/06/19 DATE OF DISCHARGE: 04/10/19 DISCHARGE DIAGNOSES: 1. Sick sinus syndrome with syncope. 2. Hypertension. 3. Hyperlipidemia. 4. Chronic kidney disease stage 3. 5. History of gout. 6. History of B12 deficiency. HISTORY: The patient is an 83-year-old man who had a syncopal episode. Please see the dictated admission note for details of the present illness, past medical history, family history, social and personal history, review of systems and physical examination. LABORATORY DATA: CBC on admission: WBC 4.1, H and H 14.4/45, MCV 96, PLT 151K. CBC remained essentially unchanged throughout his hospitalization. INR 1.09, PTT 37.7. Chemistries on admission: Sodium 138, potassium 3.1, chloride 108, CO2 17, BUN and creatinine 34/3.47, calcium 10.4, magnesium 1.9, total bilirubin 0.8. Rest of the comprehensive metabolic panel was essentially within normal limits. TSH was normal at 0.75, BNP normal at 20. Troponins were 0.01, 0.02, 0.01. Urinalysis: Straw, clear; specific gravity of 1.009, pH 6, dipstick negative. Chest x-ray showed no acute findings. Chest x-ray post pacemaker implantation showed no pneumothorax or pulmonary infiltrates. Brain CT on admission showed no acute findings, no mass or hemorrhage. EKG on admission showed sinus bradycardia, LVH. Echocardiogram showed normal systolic function, EF 60% to 65%. No significant other abnormalities. Cardiology consultation, Dr. Marrero, 04/07/19 recommended discontinuation of atenolol and clonidine and pacemaker if the patient continued to have sinus bradycardia, indications for pacemaker placement. Pacemaker placement, 04/09/19 , placement of a dual-chamber pacemaker. HOSPITAL COURSE: The patient was monitored. His medications atenolol and clonidine were held. He continued to have sinus bradycardia at times with pauses up to 3.2 seconds. It was felt he had sick sinus syndrome,with indications for dual-chamber pacemaker. This was placed by Dr. Sanders on 04/09. He tolerated the procedure without complications. He is feeling well on 04/10/19. He feels ready to be discharged. He will go home with condition improved. DIET: At the time of discharge, he is to be on his usual diet. ACTIVITY: As tolerated with instructions per Cardiology. MEDICATIONS AT THE TIME OF DISCHARGE: 1. Atenolol 50 mg daily. 2. Clonidine 0.2 mg daily. 3. Allopurinol 200 mg daily. 4. Atorvastatin 40 mg daily. 5. B12 3000 mcg daily. 6. Tylenol 650 every 6 hours as needed. 7. Cephalexin 250 mg twice a day for 4 days. Prescription for Keflex was sent to [facility]. FOLLOWUP: Followup will be for wound check with Cardiology in 1 week, with Dr. Rodriguez in 1 to 2 weeks. [id number]/[facility] #: [id number] MTDD
[2019-04-10 13:36] VITALS: BP 145/77
--- NOTE | 2019-04-10 15:09 | OP ---
CC: Dr. Fidencio Rodriguez; Dr. Moshe Marrero.* DATE OF OPERATION: 04/09/19 - ROOM #448 DATE OF : 39 SURGEON: Nina Sanders MD. ANESTHESIA: MAC. PRE-PROCEDURE DIAGNOSIS: Sick sinus syndrome with syncope. POST-OP DIAGNOSIS: Sick sinus syndrome with syncope. OPERATIVE PROCEDURE: Dual-chamber pacemaker implantation. ESTIMATED BLOOD LOSS: Less than 10 cc. INDICATIONS: Risks and benefits were discussed by Dr. Marrero with the patient the day before in the presence of his daughter and by me the day of the procedure; however, he is hard of hearing and therefore not a robust discussion on the day of the procedure. He was amenable to proceeding, he is right-handed and left subclavian fossa was prepped and draped in the usual sterile fashion. A timeout was called. The patient received 1% lidocaine for local anesthesia as well as Versed and fentanyl for sedation, amounts documented separately Because of the patient's renal insufficiency, ultrasound guidance was used to identify the location of the left subclavian vein. The subclavian artery was cannulated using this technique pressure was held for 10 minutes. Following this local anesthesia was given and using a 10 blade knife, a 2.5 cm incision was made in the left subclavian fossa and using Bovie and blunt dissection it was extended at the level of the pectoralis muscle, a small pocket was fashioned inferiorly using blunt dissection. Using ultrasound guidance again and a modified Seldinger technique, the left subclavian artery was cannulated. Pressure was again held for 5 minutes as a third arterial stick and pressure held a third time. Following this, 10 cc of radiopaque dye was injected in the left upper extremity outlining the left axillary and left subclavian vein. Using modified Seldinger technique, the left subclavian vein was cannulated and a guidewire inserted using fluoroscopic guidance. This procedure was repeated with a second guidewire. Using an introducer technique, the right ventricular lead was guided into the right ventricular septum actively fixed in place, pacing and sensing thresholds found to be good. Using the second guidewire in an introducer technique the right atrial lead was guided in the right atrial appendage, actively fixed in place pacing and sensing thresholds checked and found to be good. The leads were sutured to the pectoralis muscle taking care to position carefully. Following this the incision was copiously irrigated. The leads were attached to the generator, the generator was placed in the pocket and the incision closed using 2 layers of resorbable suture 2-0 followed by 4-0 followed by alexa and external dressing. FINDINGS: The system is an MRI compatible Medtronic system. The devices are Medtronic model WMDR01 serial #[id number], atrial lead is Medtronic 5076-527 serial #[id number]. Ventricular lead is Medtronic model 5076- 58 serial # [id number]. P-waves were sensed at 4.6 mV with an atrial lead impedance of 557 ohms and atrial pacing threshold of 0.5 V of 0.5 ms. R-waves were sensed at 2.5 mV externally (increased to 5.5 mV in the pocket at end of procedure), ventricle lead impedance 895 ohms with a ventricular pacing pressure of 0.4 V at 0.5 ms. The patient was programmed in dual chamber mode at a lower rate of 60 beats a minute at the end of the procedure. The patient's estimated blood loss was less than 10 cc. The patient was hypertensive at the beginning of the procedure, this came down with sedation. He was otherwise hemodynamically stable throughout the procedure. COMPLICATIONS: Included his subclavian artery sticks as above. [id number]/[facility] #: [id number] FRANCO
== END 2019-04-10 13:15 | disposition home or self-care (01) | DRG 244 ==
LOC: ED 10:39 → MEDTELE 14:03 → OBSVTOIN 04-07 11:00
PROVIDERS: ADMIT Internal Medicine; ATTEND Internal Medicine Geriatric Medicine
PROC: 02HK3JZ Insertion of Pacemaker Lead into Right Ventricle, Percutaneous Approach (ICD-10-PCS; 2019-04-09)
PROC: 02H63JZ Insertion of Pacemaker Lead into Right Atrium, Percutaneous Approach (ICD-10-PCS; 2019-04-09)
PROC: 0JH606Z Insertion of Pacemaker, Dual Chamber into Chest Subcutaneous Tissue and Fascia, Open Approach (ICD-10-PCS; principal; 2019-04-09 09:45)
DX: I49.5 Sick sinus syndrome (principal); I12.9 Hypertensive chronic kidney disease with stage 1 through stage 4 chronic kidney disease, or unspecified chronic kidney disease; N18.3 Chronic kidney disease, stage 3 (moderate); E78.5 Hyperlipidemia, unspecified; M10.9 Gout, unspecified; H91.90 Unspecified hearing loss, unspecified ear; E53.8 Deficiency of other specified B group vitamins; Z82.3 Family history of stroke; Z87.891 Personal history of nicotine dependence; Z83.3 Family history of diabetes mellitus; Z80.9 Family history of malignant neoplasm, unspecified; Z23 Encounter for immunization
CPT/HCPCS: 33208; 36415; 70450; 71045; 71046; 80048; 80053; 81003; 82565; 83605; 83735; 83880; 84100; 84443; 84484; 84520; 85025; 85610; 85730; 90686; 90732; 93005; 93306; 96360; 99156; 99157; 99284; A9270-GY; C1785; C1892; C1898; G8978-GP-CH; G8979-GP-CH; G8980-GP-CH; J0690; J1644; J2250; J3010; J3475

== ENCOUNTER 2019-05-23 13:45 | Inpatient (IN) | payer MEDICARE ==
[2019-05-23] MEDS ORDERED: NS 0.9% 1000 ML** 1,000 ML IV ONE (14:14)
--- NOTE | 2019-05-23 14:15 | ED ---
Complex/Multi-Sys Presentation - HPI Summary HPI Summary: This patient is an 83 year old M with a history of CKD presenting to ED with a chief complaint of elevated blood calcium (15.1 mg/dL). Patient was put on calcium supplementation by his PCP a couple of weeks ago. Since then he has been feeling dizzy, had gait issues, and has been intermittently confused. Patient has been tripping while walking but has not fallen. Patient had blood work done earlier today for Dr. Cruz, cement rubber, who told him to come to the ED as his calcium was noted to be too high. Patient denies abdominal pain. No recent infectious symptoms. Baseline Cr 3. - History Of Current Complaint Chief Complaint: EDGeneral Time Seen by Provider: 05/23/19 14:00 Hx Obtained From: Patient Onset/Duration: Gradual Onset, Lasting Weeks - 2 weeks, Still Present Timing: Constant Severity Currently: Mild Severity Initially: Mild Location: Negative Aggravating Factor(s): Nothing Alleviating Factor(s): Nothing Associated Signs And Symptoms: Positive: Confusion, Dizziness, Other - Unsteady gait. Negative: Abdominal Pain - Allergies/Home Medications Allergies/Adverse Reactions: Allergies Allergy/AdvReac Type Severity Reaction Status Date / Time No Known Allergies Allergy Verified 04/06/19 12:13 Home Medications: Home Medications Calcitriol CAP* [Rocaltrol CAP*] 0.5 mcg PO BID 05/23/19 [History Confirmed ] amLODIPine TAB* [Norvasc 5 mg TAB*] 5 mg PO BEDTIME 05/23/19 [History Confirmed 05/23/19] PMH/Surg Hx/FS Hx/Imm Hx Endocrine/Hematology History: Denies: Hx Diabetes Cardiovascular History: Reports: Hx Hypercholesterolemia, Hx Hypertension, Hx Pacemaker/ICD - 10/ Denies: Hx Angina, Hx Coronary Artery Disease, Hx Myocardial Infarction, Hx Valvular Heart Disease Respiratory History: Denies: Hx Asthma, Hx Chronic Obstructive Pulmonary Disease (COPD) History: Reports: Hx Chronic Renal Failure Sensory History: Reports: Hx Contacts or Glasses - reading, Hx Hearing Aid - bilateral, Hx Hearing Problem Opthamlomology History: Reports: Hx Contacts or Glasses - reading - Surgical History Surgery Procedure, Year, and Place: , April 2019 Infectious Disease History: No Infectious Disease History: Denies: Traveled Outside the [place] in Last 30 Days - Family History Known Family History: Positive: Hypertension, Diabetes, Other - CA - Social History Alcohol Use: None Hx Substance Use: No Substance Use Type: Reports: None Hx Tobacco Use: Yes Smoking Status (MU): Former Smoker Review of Systems Negative: Abdominal Pain Neurological: Other - Confusion, dizziness, unsteady gait All Other Systems Reviewed And Are Negative: Yes Physical Exam - Summary Physical Exam Summary: Constitutional: Well-developed, Well-nourished, Alert. (-) Distressed Skin: Warm, Dry HENT: Normocephalic; Atraumatic. Hard of hearing Eyes: Conjunctiva normal Neck: Musculoskeletal ROM normal neck. (-) JVD, (-) Stridor, (-) Nuchal rigidity Cardio: Rhythm regular, rate normal, Heart sounds normal; Intact distal pulses; Radial pulses are 2+ and symmetric. (-) Murmur Pulmonary/Chest wall: Effort normal. (-) Respiratory distress, (-) Wheezes, (-) Rales Abd: Soft, (-) tenderness, (-) Distension, (-) Guarding, (-) Rebound Musculoskeletal: (-) Edema Lymph: (-) Cervical adenopathy Neuro: Alert, Oriented x3. GCS: 15 Psych: Mood and affect Normal Triage Information Reviewed: Yes Vital Signs On Initial Exam: Initial Vitals Temp Pulse Resp BP Pulse Ox 97.4 F 68 16 153/105 98 05/23/19 13:46 05/23/19 13:46 05/23/19 13:46 05/23/19 13:46 05/23/19 13:46 Vital Signs Reviewed: Yes Procedures - Sedation Patient Received Moderate/Deep Sedation with Procedure: No Diagnostics - Vital Signs Vital Signs Temp Pulse Resp BP Pulse Ox 05/23/19 13:46 97.4 F 68 16 153/105 98 - Laboratory Result Diagrams: 05/23/19 14:27 05/23/19 14:27 Lab Statement: Any lab studies that have been ordered have been reviewed, and results considered in the medical decision making process. - CT Brain CT Interpretation Completed By: Radiologist Summary of CT Findings: #. No acute intracranial process evident. #. Involutional change and stigmata of chronic small vessel ischemic disease. Dr. Abarca has reviewed this radiology report. Re-Evaluation - Re-Evaluation First Eval Re-Evaluation Time: 15:20 Comment: Discussed results with patient and patient's family. [place] be [place] [facility] [place] of hypercalcemia. Patient's family agrees and understands with this plan. Complex Multi-Symp Course/Dx Course Of Treatment: 83 y/o male w CKD placed on vit D and calcium supplements p /w elevated Ca and intermittent AMS. - suspect intermittent AMS 2/[address] brain neg. AAOx3 here, afebrile. Low suspicion for infectious causes of AMS. - given IVF. nephrology aware. Ca 15 here. Cr elevated from baseline. - plan for admit to medicine, hydration. - Diagnoses Provider Diagnoses: Hypercalcemia - Physician Notifications Discussed Care Of Patient With: Trupti Mckenzie Time Discussed With Above Provider: 15:19 Instructed by Provider To: Admit As Inpatient - Discussed patient case with Dr. Infante, who accepted the patient for admission to [facility]. Discharge ED - Sign-Out/Discharge Documenting (check all that apply): Patient Departure - Admit - Discharge Plan Condition: Fair Disposition: ADMITTED TO [facility] Referrals: Fidencio Rodriguez MD [Primary Care Provider] - - Billing Disposition and Condition Condition: FAIR Disposition: Admitted to [facility] - Attestation Statements Document Initiated by Scribe: Yes Documenting Scribe: Feliberto Duff Provider For Whom Haydee is Documenting (Include Credential): Regine Abarca MD Scribe Attestation: I, Feilberto Duff, scribed for Regine Abarca MD on 05/23/19 at 1623. Scribe Documentation Reviewed: Yes Provider Attestation: The documentation as recorded by the Feliberto fernandez accurately reflects the service I personally performed and the decisions made by me, Regine Abarca MD Status of Scribe Document: Viewed
[2019-05-23 14:35] LABS: ABS Basophils 0.1 10^3/ul (0-0.2); ABS Eosinophils 0.2 10^3/ul (0-0.6); ABS Lymphocytes 1.1 10^3/ul (1.0-4.8); ABS Monocytes 0.5 10^3/ul (0-0.8); ABS Neutrophils 3.8 10^3/ul (1.5-7.7); Eosinophil % 3.9 %; Hematocrit 42 % (42-52); Hemoglobin 13.9 g/dL (14.0-18.0); Lymphocyte % 19.8 %; Mean Corpuscular HGB Conc 33 g/dL (31-36); Mean Corpuscular Hemoglobin 31 pg (27-31); Mean Corpuscular Volume 93 fL (80-94); Mean Platelet Volume 8.3 fL (7.4-10.4); Nucleated Red Blood Cells % 0.2; Platelet Count 162 10^3/uL (150-450); Red Blood Count 4.55 10^6 /uL (4.18-5.48); Red Cell Distribution Width 15 % (10-15); White Blood Count 5.7 10^3/uL (3.5-10.8)
[2019-05-23 15:02] LABS: Albumin 3.8 g/dL (3.2-5.2); Albumin/Globulin Ratio 1.1 (1-3); BUN/Creatinine Ratio 9.6 (8-20); EGFR African American 17.8 (>60); EGFR Non-African American 14.7 (>60); Globulin 3.5 g/dL (2-4); Potassium 3.8 mmol/L (3.5-5.0); Total Bilirubin 0.7 mg/dL (0.2-1.0); Total Protein 7.3 g/dL (6.4-8.9)
[2019-05-23 15:07] LABS: Calcium 15.6 mg/dL (8.6-10.3)
[2019-05-23] MEDS ORDERED: Calcitonin (Salmon) INJ* 200 UNITS/ML 2 ML VIAL IM ONE (16:55)
--- NOTE | 2019-05-23 17:02 | HP ---
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 Patient is a poor historian as he was slow in response and had hearing impairment. The history was mainly obtained from his younger brother who was the main plant care worker for the last one month. His brother noted he had progressive decline since discharge from hospital for syncope, he needed to hold on the rails when walking. He noted worsening function in the past 2 weeks, he was less responsive, he had disequilibrium on walking, appeared to be confused, he nearly fell down last week in the restroom. And he had a few episodes of vomiting last week. His brother also pointed out a significant weight loss 30lb in the past 1 week. He is not sure about patient's age-appropriate cancer screening results as he just stayed with him for the past one month. He admitted he was complaining of "hot and cold " last week, no bone pain, no other particular discomfort he mentioned. Of note, he was started on calcitriol 0.5mcg bid since 04/29, no other supplement he was taking. He had last documented calcium done 10.3 from 2018, last PTH 15.2 on 03/05/2019. - Past Medical History Past Medical History: 1. Sick Sinus Syndrome s/p dual-chamber pacemaker 2. HTN 3. HLD 4. Chronic kidney disease stage 3 5. History of gout 6. History of B12 deficiency - Past Surgical History Past Surgical History: None other than pacemaker insertion - Past Family History Past Family History: Elder brother has throat cancer and Father had stroke and , mother naturally. No history of cancer or other genetic diseases. 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 Non smoker , no alcohol use, no drug use. Currently staying with his brother, and his daughter currently staying in [place] plans to move to [place]. HCP is his daughter. He would like full code. Review of Systems - Review of Systems Constitutional: Positive: Weakness, Malaise Eyes: Negative: Pain, Vision Change, Conjunctivae Inflammation, Eyelid Inflammation, Redness, Other ENT: Negative: Ear Pain, Ear Discharge, Nose Pain, Nose Discharge, Nose Congestion, Mouth Pain, Mouth Swelling, Throat Pain, Throat Swelling, Other Respiratory: Negative: Cough, Dry, Shortness of Breath, Hemoptysis, SOB with Excertion, Pleuritic Pain, Sputum, Wheezing Cardiovascular: Negative: Chest Pain, Palpitations, Orthopnea, Paroxysmal Noc. Dyspnea, Edema, Other Gastrointestinal: Negative: Nausea, Abdominal Pain, Diarrhea, Constipation, Melena, Hematochezia, Other Genitourinary: Negative: Dysuria, Frequency, Incontinence, Hematuria, Retention , Other Musculoskeletal: Negative: Neck Pain, Shoulder Pain, Arm Pain, Back Pain, Hand Pain, Leg Pain, Foot Pain, Other Skin: Negative: Rash, Lesions, Chad, Bruising, Other Neurological: Positive: Weakness, Confusion - Medications/Allergies Allergies/Adverse Reactions: Allergies Allergy/AdvReac Type Severity Reaction Status Date / Time No Known Allergies Allergy Verified 04/06/19 12:13 Medications: Home Medication Allopurinol TAB* [Zyloprim 100 MG TAB*] 200 mg PO DAILY 04/06/19 [History Confirmed 05/23/19] Atenolol TAB* [Tenormin TAB* 25 MG] 50 mg PO DAILY 04/06/19 [History Confirmed 05/23/19] Atorvastatin* [Lipitor 40 MG*] 40 mg PO DAILY 04/06/19 [History Confirmed ] cloNIDine TAB* [Catapres 0.1 MG TAB*] 0.2 mg PO DAILY 04/06/19 [History Confirmed 05/23/19] Calcitriol CAP* [Rocaltrol CAP*] 0.5 mcg PO BID 05/23/19 [History Confirmed ] amLODIPine TAB* [Norvasc 5 mg TAB*] 5 mg PO BEDTIME 05/23/19 [History Confirmed 05/23/19] Exam Vital Signs: Vital Signs (72 hours) 05/23/19 05/23/19 05/23/19 13:46 14:07 14:38 Temperature 97.4 F Pulse Rate 68 85 74 Respiratory 16 20 16 Rate Blood Pressure 153/105 159/105 147/91 (mmHg) O2 Sat by Pulse 98 96 97 Oximetry 11/29/19 11/29/19 11/29/19 14:55 15:00 15:08 Temperature Pulse Rate 73 64 60 Respiratory 16 12 20 Rate Blood Pressure 151/113 143/87 (mmHg) O2 Sat by Pulse 97 97 96 Oximetry 05/23/19 15:38 Temperature Pulse Rate 61 Respiratory 18 Rate Blood Pressure 135/86 (mmHg) O2 Sat by Pulse 98 Oximetry Exam: Gen: well groomed black men, lying on the stretcher, not in distress, hearing impairment HEENT: NC/AT, PERRLA, tongue dry Neck: soft, supple, neg cervical LAD, neg JVD HEART: S1S2 WNL, RRR, no MRG Chest: clear Ext: ROM Skin: decreased skin turgor, dry oral mucosa Neuro: oriented x4 Cranial nerve intact Muscle strength 5/5 Hyporeflexia unable to test dysmetria Mood: stable Assessment/Plan - Assessment/Plan Assessment: Bradley العلي is a 83 y/o male with history of sick sinus syndrome s/p dual chamber pacemaker in Mar 2019, HTN, HLD, CKD stage 3, Gout, B12 deficiency, presented with confusion and functional decline in the past 2 weeks, was found to have high calcium 15 for routine pre visit blood. Likely due to recent initiation of calcitriol, other causes including hyperparathyroidism, malignancy needs to be ruled out. In view of the high calcium level, hospitalist admitted patient with telemetry monitoring to medical floor. Plan: 1. 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 Acute on chronic kidney injury - Baseline creatnine is 3.05, on admission creatnine 3.94 - likely due to dehydration - iv fluid as mentioned 3. Gait instability - neurological examination benign - CT brain normal - may be related to confusion due to hypercalcemia - PT assessment after hypercalcemia resolving 4. DVT prophylaxis - sc Lovenox Attestation Documenting Resident: Gladys Cherry Supervising Physician: Rasta Alfonso Attending/Supervising Physician Comment: Severe hypercalcemia developed over the course of one month as we have 10.4 level on 04/19, strong evidence of increase to 15.6 to be a side effect of calcitriol 0.5mg BID prescribed on 04/29 in the setting of also worsening renal failure. Up until a week ago he was managing his own meds and brother thinks he was taking them all at once in the morning so may have been taking 1mg daily instead. Pill count reveals 13 pills left which is very close to appropriate amount. He is status post 1L N/S and will hydrate with 150cc/hr (and maybe even higher) and initiate 4u/kg q12 of calcitonin while avoiding bisphosphonates for now given that with the cessation of calcitriol this may be more quickly reversible compared to other etiologies and bisphosphonates would risk hypocalcemia for weeks later. Will need close monitoring of volume status and may need lasix prn if getting volume overloaded. PTH, PTHrp, Vit D 1,25 OH, Vit D 25 OH. Nephrology also recommended SPEP. Etiology of his CKD not well documented in the chart. Brother made clear that Bradley in the past has refused consideration of dialysis (had been mentioned about a decade ago by Dr. Olson. Ema, UCrt though likely pre-renal given confusion reducing his appetite. strict io. daily weights. Full Code. Attestation: This service has been performed in part by a resident under the direction of a teaching physician.I, Rasta Alfonso, performed the service, or was physically present during the critical, or joshi portions of the service, furnished by the resident. I participated in the management of the patient. Lab Results - Lab Results Lab Results: 05/23/19 05/23/19 05/23/19 14:27 14:27 14:27 WBC 5.7 RBC 4.55 Hgb 13.9 L Hct 42 MCV 93 MCH 31 MCHC 33 RDW 15 Plt Count 162 MPV 8.3 Neut % (Auto) 66.1 Lymph % (Auto) 19.8 [place] % (Auto) 8.8 Eos % (Auto) 3.9 Baso % (Auto) 1.4 Absolute Neuts (auto) 3.8 Absolute Lymphs (auto) 1.1 Absolute Monos (auto) 0.5 Absolute Eos (auto) 0.2 Absolute Basos (auto) 0.1 Absolute Nucleated RBC 0.0 Nucleated RBC % 0.2 Sodium 138 Potassium 3.8 Chloride 104 Carbon Dioxide 31 Anion Gap 3 BUN 38 H Creatinine 3.94 H Est GFR ( Amer) 17.8 Est GFR (Non-Af Amer) 14.7 BUN/Creatinine Ratio 9.6 Glucose 112 H Calcium 15.6 H* Phosphorus 3.0 Total Bilirubin 0.70 AST 25 ALT 13 Alkaline Phosphatase 71 Total Protein 7.3 Albumin 3.8 Globulin 3.5 Albumin/Globulin Ratio 1.1 PTH Intact 16.7 Calcium (PTH Intact) 15.6 H* EKG: atrial paced rhythm, HR 62, RI prolongation at 205ms, QRS, QTc interval normal
[2019-05-23] MEDS: NS 0.9% 1000 ML** 1,000 ML IV SCH (17:46)
[2019-05-23] MEDS ORDERED: Enoxaparin(*) 30 MG/0.3 ML SYR SUBCUT SCH (18:00)
[2019-05-23 18:11] LABS: Vitamin D Total 25(OH) 52.2 ng/mL (20-50)
[2019-05-23] MEDS ORDERED: amLODIPine TAB* 5 MG PO SCH (21:00)
[2019-05-23 22:18] LABS: Urine Creatinine Concentration 83.04 mg/dL
[2019-05-23 22:31] LABS: CO2 Carbon Dioxide 21 mmol/L (22-32); Chloride 109 mmol/L (101-111); Sodium 137 mmol/L (135-145)
[2019-05-23 22:34] LABS: Anion Gap 7 mmol/L (2-11); Calcium 13.3 mg/dL (8.6-10.3)
[2019-05-23 22:37] LABS: BUN/Creatinine Ratio 9.9 (8-20); Blood Urea Nitrogen 36 mg/dL (6-24); EGFR African American 19.5 (>60); EGFR Non-African American 16.1 (>60); Glucose 134 mg/dL (70-100)
[2019-05-24] MEDS: NS 0.9% 1000 ML** 1,000 ML IV SCH ×3 (01:13→16:28)
[2019-05-24 05:46] LABS: BUN/Creatinine Ratio 9.8 (8-20); Calcium 12.6 mg/dL (8.6-10.3); EGFR African American 20.7 (>60); EGFR Non-African American 17.1 (>60); Magnesium 1.4 mg/dL (1.9-2.7)
[2019-05-24] MEDS ORDERED: Calcitonin (Salmon) INJ* 200 UNITS/ML 2 ML VIAL IM ONE ×2 (06:00→18:00)
[2019-05-24] MEDS ORDERED: Magnesium Sulfate IV* 3 GM in NS 0.9% 100 ML* 100 ML IVPB ONE (07:24)
[2019-05-24] MEDS ORDERED: NS 0.9% 100 ML* 100 ML ONE (07:47)
[2019-05-24] MEDS: amLODIPine TAB* 5 MG PO SCH ×2 (08:30→10:13)
[2019-05-24] MEDS: Atenolol TAB* 50 MG PO SCH (08:32)
[2019-05-24] MEDS: Atorvastatin* 40 MG TAB PO SCH (08:32)
[2019-05-24] MEDS: cloNIDine TAB* 0.1 MG PO SCH (08:33)
[2019-05-24] MEDS ORDERED: Allopurinol TAB* 100 MG PO SCH (09:00)
--- NOTE | 2019-05-24 10:05 | CONS ---
NEPHROLOGY CONSULTATION REPORT: DATE OF CONSULT: 05/23/19 REQUESTING PHYSICIAN: ER. REASON FOR CONSULT: Hypercalcemia. HISTORY OF PRESENT ILLNESS: An 83-year-old male with history of sick sinus syndrome, status post pac emaker placement in March 2019, hypertension, hyperlipidemia, CKD stage 3 to 4, gout, B12 deficienc y, came into the hospital per instructions from Dr. Woods. The patient was noted to have calcium of 1 5.2 on outpatient labs. The patient also had disequilibrium, gait imbalance, dizziness with episodes of nausea and vomiting over the last 1 to 2 weeks. Family also reported lack of appetite and signif icant weight loss. In light of these symptoms and his abnormal calcium level, the patient was advise d to come to the emergency room for IV hydration. In the ER, the patient has received a liter of flu ids and the patient reports that his symptoms are somewhat better. The patient was started on calcit riol 0.5 mcg b.i.d. earlier in April. Calcium was 10.3 on 04/19/19. PAST MEDICAL HISTORY: 1. Sick sinus syndrome, status post pacemaker placement. 2. Hypertension. 3. Hyperlipidemia. 4. Chronic kidney disease stage 4. 5. Gout. 6. B12 deficiency. MEDICATION LIST: 1. Allopurinol 200 mg p.o. daily. 2. Atenolol 50 mg p.o. daily. 3. Atorvastatin 40 mg daily. 4. Clonidine 0.2 mg p.o. daily. 5. Calcitriol 0.5 mcg p.o. b.i.d. 6. Amlodipine 5 mg p.o. at bedtime. FAMILY HISTORY: Brother with throat cancer. Father with stroke. SOCIAL HISTORY: Nonsmoker. No alcohol use. No recreational drug use. 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 REVIEW OF SYSTEMS: As noted in the HPI, other 14-point review of systems noted to be within normal l imits. PHYSICAL EXAM: Vitals: At the time of admission in the ER, temperature 97.5, pule 69, respiratory r ate 20, oxygen saturation 100%, blood pressure 152/101. HEENT: NC/AT. Heart: S1, S2 present. Regu lar at the time of exam. Lungs: Clear to auscultation. Abdomen: Soft. Extremities: Noted to hav e no edema. Neuro: Alert, oriented. Gait not tested. No focal cranial nerve deficits. DIAGNOSTIC STUDIES/LABORATORY DATA: Sodium 138, potassium 3.8, chloride 104, CO2 31, BUN 38, creatin ine 3.9. Calcium 15.6. PTH pending. WBC 5.7, hemoglobin 13.9, hematocrit 42, platelets noted to be 162. The patient had a CT of his brain done, which showed no acute intracranial process, chronic small ves donovan ischemic disease. Please note that the patient's baseline creatinine noted to be in the 3 to 3.4 range, on 11/29/18 was noted to be 3.2, on 04/06/19 was noted to be 3.47 and recently had been in the 3 range prior to his episode of ELLEN related to hypercalcemia. ASSESSMENT AND PLAN: An 83-year-old male with history of hypertension, hyperlipidemia, chronic kidne y disease stage 4, here with hypercalcemia. 1. Hypercalcemia, likely related to calcitriol use. We will also recommend checking for multiple my eloma and checking SPEP, UPEP, kappa and lambda light chains, checking a vitamin D level and PTH leve l which should be appropriately suppressed with his high calcium. I recommend holding the calcitriol . Can possibly hold off on further extensive workup for hypercalcemia at this time. 2. Acute kidney injury on chronic kidney disease stage 4 secondary to hypercalcemia. 3. For treatment, I recommend aggressive IV hydration and as it is medication related, should slowly improve. If condition does not improve, can consider further management. We will follow with the [facility] team and be available for any questions. [id number]/[facility] #: [id number]
--- NOTE | 2019-05-24 11:27 | PN ---
Subjective Date of Service: 05/24/19 Interval History: No acute events overnight. Following commands and walked with nursing, ate breakfast Ca downtrending 15.6 -> 13.3 -> 12.6 [employer] improving 3.94-> 3.65-> 3.46 UOP 950, total net positive 1919 Mag 1.4 -> 3gm repletion. Denies complaints, no nausea/vomiting or abdominal pain or SOB. Objective Active Medications: Amlodipine Besylate (Norvasc Tab*) 10 mg PO DAILY [facility] Last Admin: 05/24/19 10:13 Dose: Not Given Atenolol (Tenormin Tab*) 50 mg PO DAILY [facility] Last Admin: 05/24/19 08:32 Dose: 50 mg Atorvastatin Calcium (Lipitor*) 40 mg PO DAILY [facility] Last Admin: 05/24/19 08:32 Dose: 40 mg Clonidine HCl (Catapres Tab*) 0.2 mg PO DAILY [facility] Last Admin: 05/24/19 08:33 Dose: 0.2 mg Enoxaparin Sodium (Lovenox(*)) 30 mg SUBCUT Q24H [facility] Last Admin: 05/23/19 18:00 Dose: 30 mg Sodium Chloride (Ns 0.9% 1000 Ml) 1,000 mls @ 150 mls/hr IV PER RATE [facility] Last Admin: 05/24/19 08:35 Dose: 150 mls/hr Vital Signs - 8 hr 05/24/19 07:15 Temperature 97.4 F Pulse Rate 66 Respiratory 16 Rate Blood Pressure 152/85 (mmHg) O2 Sat by Pulse 100 Oximetry Oxygen Devices in Use Now: None Appearance: NAD, initially asleep but instantly awake with adjustment of blanket Eyes: No Scleral Icterus Ears/Nose/Mouth/Throat: NL Teeth, Lips, Gums Neck: NL Appearance and Movements; NL JVP Respiratory: Symmetrical Chest Expansion and Respiratory Effort, Clear to Auscultation Cardiovascular: NL Sounds; No Murmurs; No JVD, RRR Abdominal: NL Sounds; No Tenderness; No Distention, No Hepatosplenomegaly Extremities: No Edema Skin: No Rash or Ulcers Neurological: - - very [place], following commands and answering questions, able to walk with RN. Nutrition: Taking PO's Result Diagrams: 05/23/19 14:27 05/24/19 05:22 Additional Lab and Data: Laboratory Results - last 24 hr 05/23/19 05/23/19 05/23/19 14:27 14:27 14:27 WBC 5.7 RBC 4.55 Hgb 13.9 L Hct 42 MCV 93 MCH 31 MCHC 33 RDW 15 Plt Count 162 MPV 8.3 Neut % (Auto) 66.1 Lymph % (Auto) 19.8 [place] % (Auto) 8.8 Eos % (Auto) 3.9 Baso % (Auto) 1.4 Absolute Neuts (auto) 3.8 Absolute Lymphs (auto) 1.1 Absolute Monos (auto) 0.5 Absolute Eos (auto) 0.2 Absolute Basos (auto) 0.1 Absolute Nucleated RBC 0.0 Nucleated RBC % 0.2 Sodium 138 Potassium 3.8 Chloride 104 Carbon Dioxide 31 Anion Gap 3 BUN 38 H Creatinine 3.94 H Est GFR ( Amer) 17.8 Est GFR (Non-Af Amer) 14.7 BUN/Creatinine Ratio 9.6 Glucose 112 H Calcium 15.6 H* Phosphorus 3.0 Magnesium Total Bilirubin 0.70 AST 25 ALT 13 Alkaline Phosphatase 71 Total Protein 7.3 Albumin 3.8 Globulin 3.5 Albumin/Globulin Ratio 1.1 25-OH Vitamin D Total 52.2 H PTH Intact 16.7 Calcium (PTH Intact) 15.6 H* Ur Creatinine Concen U Sodium Concentration 05/23/19 05/23/19 05/24/19 18:06 22:12 00:00 WBC RBC Hgb Hct MCV MCH MCHC RDW Plt Count MPV Neut % (Auto) Lymph % (Auto) [place] % (Auto) Eos % (Auto) Baso % (Auto) Absolute Neuts (auto) Absolute Lymphs (auto) Absolute Monos (auto) Absolute Eos (auto) Absolute Basos (auto) Absolute Nucleated RBC Nucleated RBC % Sodium 137 Potassium TNP 3.7 Chloride 109 Carbon Dioxide 21 L Anion Gap 7 BUN 36 H Creatinine 3.65 H Est GFR ( Amer) 19.5 Est GFR (Non-Af Amer) 16.1 BUN/Creatinine Ratio 9.9 Glucose 134 H Calcium 13.3 H* Phosphorus Magnesium Total Bilirubin AST ALT Alkaline Phosphatase Total Protein Albumin Globulin Albumin/Globulin Ratio 25-OH Vitamin D Total PTH Intact Calcium (PTH Intact) Ur Creatinine Concen 83.04 U Sodium Concentration 65 05/24/19 05:22 WBC RBC Hgb Hct MCV MCH MCHC RDW Plt Count MPV Neut % (Auto) Lymph % (Auto) [place] % (Auto) Eos % (Auto) Baso % (Auto) Absolute Neuts (auto) Absolute Lymphs (auto) Absolute Monos (auto) Absolute Eos (auto) Absolute Basos (auto) Absolute Nucleated RBC Nucleated RBC % Sodium 138 Potassium 4.0 Chloride 110 Carbon Dioxide 25 Anion Gap 3 BUN 34 H Creatinine 3.46 H Est GFR ( Amer) 20.7 Est GFR (Non-Af Amer) 17.1 BUN/Creatinine Ratio 9.8 Glucose 107 H Calcium 12.6 H Phosphorus 3.0 Magnesium 1.4 L Total Bilirubin AST ALT Alkaline Phosphatase Total Protein Albumin Globulin Albumin/Globulin Ratio 25-OH Vitamin D Total PTH Intact Calcium (PTH Intact) Ur Creatinine Concen U Sodium Concentration Assess/Plan/Problems-Billing Assessment: 83 yo male PMH CKDIV, SSS s/p recent PPM, HTN presents with abdominal discomfort , unsteady gait, weakness, poor po intake. Found to have severe hypercalcemia to 15.6. Had been started on calcitriol 3.5 weeks earlier which is suspected etiology. ELLEN. Improving with IVF and calcitonin. - Patient Problems (1) Hypercalcemia due to a drug Current Visit: Yes Status: Acute Code(s): E83.52 - HYPERCALCEMIA; T50.905A - ADVERSE EFFECT OF UNSP DRUG/MEDS/BIOL SUBST, INIT SNOMED Code(s): 8520393 Comment: thought secondary to recently prescribed calcitriol(04/29). Improvin.6 -> 13.3 -> 12.6 with IVF and calcitonin 4u/kg q12 x2 doses (no e /o tachyphylaxis). Avoiding bisphosphonate treatment as likely to resolve with medication cessation. Will give 1 more dose of calcitonin this afternoon then d/ c. f/u SPEP/UPEP/light chains as recommended by Nephrology f/u Vitamin D 1,25 -OH and PTH-rp (2) ELLEN (acute kidney injury) Current Visit: Yes Status: Acute Code(s): N17.9 - ACUTE KIDNEY FAILURE, UNSPECIFIED SNOMED Code(s): 12394821 Comment: likely secondary to hypercalcemia and asociated poor po intake given confusion. Improving continue IVF: NS at 150cc/hr monitor volume status closely. Currently euvolemic Pt would not want HD (says his brother) (3) Hypertension Current Visit: No Status: Acute Code(s): I10 - ESSENTIAL (PRIMARY) HYPERTENSION SNOMED Code(s): 64221532 Comment: - SBP 150-160s - increase home amolidipine from 5mg daily to 10mg daily. - continue home atenolol and clonidine 0.2mg (4) CKD (chronic kidney disease) stage 4, GFR 15-29 ml/min Current Visit: Yes Status: Acute Code(s): N18.4 - CHRONIC KIDNEY DISEASE, STAGE 4 (SEVERE) SNOMED Code(s): 553790785 Comment: ELLEN on recently worsening baseline trend. ([employer] 3.0 on 03/30) IVF and calcium correction as above would not want HD (per brother base on past discussions with Dr. Olson; He has recently established with Dr. Cruz). (5) DVT prophylaxis Current Visit: No Status: Acute Code(s): Z29.9 - ENCOUNTER FOR PROPHYLACTIC MEASURES, UNSPECIFIED SNOMED Code(s): 416854384 Comment: -switch to Heparin from lovenox given CrCl 20 <30 (6) Gout Current Visit: No Status: Acute Code(s): M10.9 - GOUT, UNSPECIFIED SNOMED Code(s): 84118163 Comment: -hold allopurinol in setting of acute on chronic renal failure. Allopurinol can also have rare side effect of hypercalcemia. (7) HLD (hyperlipidemia) Current Visit: No Status: Acute Code(s): E78.5 - HYPERLIPIDEMIA, UNSPECIFIED SNOMED Code(s): 82623375 Comment: -Continue statin Status and Disposition: medicine inpatient
[2019-05-24] MEDS: Heparin VIAL(*) 5000 UNITS/ML VIAL (FIVE THOUSAND) SUBCUT SCH ×2 (14:39→21:03)
[2019-05-25] MEDS: NS 0.9% 1000 ML** 1,000 ML IV SCH ×2 (02:22→09:34)
[2019-05-25] MEDS: Heparin VIAL(*) 5000 UNITS/ML VIAL (FIVE THOUSAND) SUBCUT SCH ×3 (05:20→20:17)
[2019-05-25 08:01] LABS: ABS Basophils 0.1 10^3/ul (0-0.2); ABS Eosinophils 0.2 10^3/ul (0-0.6); ABS Lymphocytes 1.3 10^3/ul (1.0-4.8); ABS Monocytes 0.3 10^3/ul (0-0.8); ABS Neutrophils 3.2 10^3/ul (1.5-7.7); Eosinophil % 3.9 %; Hematocrit 38 % (42-52); Hemoglobin 12.5 g/dL (14.0-18.0); Lymphocyte % 25.7 %; Mean Corpuscular HGB Conc 33 g/dL (31-36); Mean Corpuscular Hemoglobin 31 pg (27-31); Mean Corpuscular Volume 93 fL (80-94); Mean Platelet Volume 8.6 fL (7.4-10.4); Platelet Count 161 10^3/uL (150-450); Red Blood Count 4.07 10^6 /uL (4.18-5.48); Red Cell Distribution Width 15 % (10-15); White Blood Count 5.1 10^3/uL (3.5-10.8)
[2019-05-25 08:16] LABS: BUN/Creatinine Ratio 8.3 (8-20); Calcium 11.2 mg/dL (8.6-10.3); EGFR African American 25.4 (>60); Magnesium 1.5 mg/dL (1.9-2.7); Potassium 3.7 mmol/L (3.5-5.0)
[2019-05-25] MEDS: Atenolol TAB* 50 MG PO SCH (09:34)
[2019-05-25] MEDS: cloNIDine TAB* 0.1 MG PO SCH (09:34)
[2019-05-25] MEDS: Atorvastatin* 40 MG TAB PO SCH (09:34)
[2019-05-25] MEDS: amLODIPine TAB* 5 MG PO SCH (09:34)
[2019-05-25] MEDS ORDERED: Magnesium Sulfate IV* 3 GM in NS 0.9% 100 ML* 100 ML IVPB ONE (11:00)
--- NOTE | 2019-05-25 14:33 | PN ---
Subjective Date of Service: 05/25/19 Interval History: Patient was brighter today, able to answer questions appropriately though limited by hearing impairment. No vomiting/nausea overnight. Objective Active Medications: Amlodipine Besylate (Norvasc Tab*) 10 mg PO DAILY [facility] Last Admin: 05/25/19 09:34 Dose: 10 mg Atenolol (Tenormin Tab*) 50 mg PO DAILY [facility] Last Admin: 05/25/19 09:34 Dose: 50 mg Atorvastatin Calcium (Lipitor*) 40 mg PO DAILY [facility] Last Admin: 05/25/19 09:34 Dose: 40 mg Clonidine HCl (Catapres Tab*) 0.2 mg PO DAILY [facility] Last Admin: 05/25/19 09:34 Dose: 0.2 mg Heparin Sodium (Porcine) (Heparin Vial(*)) 5,000 units SUBCUT Q8HR [facility] Last Admin: 05/25/19 05:20 Dose: 5,000 units Sodium Chloride (Ns 0.9% 1000 Ml) 1,000 mls @ 150 mls/hr IV PER RATE [facility] Last Admin: 05/25/19 09:34 Dose: 150 mls/hr Vital Signs - 8 hr 05/25/19 05/25/19 05/25/19 07:33 08:00 11:33 Temperature 98.4 F Pulse Rate 67 70 Respiratory 16 14 20 Rate Blood Pressure 144/72 159/88 (mmHg) O2 Sat by Pulse 100 100 Oximetry Oxygen Devices in Use Now: None Exam: Appearance: NAD,able to obey command and answer questions appropriately Eyes: No Scleral Icterus Ears/Nose/Mouth/Throat: NL Teeth, Lips, Gums Neck: NL Appearance and Movements; NL JVP Respiratory: Symmetrical Chest Expansion and Respiratory Effort, Clear to Auscultation Cardiovascular: NL Sounds; No Murmurs; No JVD, RRR Abdominal: NL Sounds; No Tenderness; No Distention, No Hepatosplenomegaly Extremities: No Edema Skin: No Rash or Ulcers Neurological: - - very [place], following commands and answering questions, able to walk with RN. Nutrition: Taking PO's Result Diagrams: 05/25/19 07:38 05/25/19 07:38 Additional Lab and Data: Laboratory Results - last 24 hr 05/23/19 05/23/19 05/23/19 14:27 14:27 14:27 WBC 5.7 RBC 4.55 Hgb 13.9 L Hct 42 MCV 93 MCH 31 MCHC 33 RDW 15 Plt Count 162 MPV 8.3 Neut % (Auto) 66.1 Lymph % (Auto) 19.8 [place] % (Auto) 8.8 Eos % (Auto) 3.9 Baso % (Auto) 1.4 Absolute Neuts (auto) 3.8 Absolute Lymphs (auto) 1.1 Absolute Monos (auto) 0.5 Absolute Eos (auto) 0.2 Absolute Basos (auto) 0.1 Absolute Nucleated RBC 0.0 Nucleated RBC % 0.2 Sodium 138 Potassium 3.8 Chloride 104 Carbon Dioxide 31 Anion Gap 3 BUN 38 H Creatinine 3.94 H Est GFR ( Amer) 17.8 Est GFR (Non-Af Amer) 14.7 BUN/Creatinine Ratio 9.6 Glucose 112 H Calcium 15.6 H* Phosphorus 3.0 Magnesium Total Bilirubin 0.70 AST 25 ALT 13 Alkaline Phosphatase 71 Total Protein 7.3 Albumin 3.8 Globulin 3.5 Albumin/Globulin Ratio 1.1 25-OH Vitamin D Total 52.2 H PTH Intact 16.7 Calcium (PTH Intact) 15.6 H* Ur Creatinine Concen U Sodium Concentration 05/23/19 05/23/19 05/24/19 18:06 22:12 00:00 WBC RBC Hgb Hct MCV MCH MCHC RDW Plt Count MPV Neut % (Auto) Lymph % (Auto) [place] % (Auto) Eos % (Auto) Baso % (Auto) Absolute Neuts (auto) Absolute Lymphs (auto) Absolute Monos (auto) Absolute Eos (auto) Absolute Basos (auto) Absolute Nucleated RBC Nucleated RBC % Sodium 137 Potassium TNP 3.7 Chloride 109 Carbon Dioxide 21 L Anion Gap 7 BUN 36 H Creatinine 3.65 H Est GFR ( Amer) 19.5 Est GFR (Non-Af Amer) 16.1 BUN/Creatinine Ratio 9.9 Glucose 134 H Calcium 13.3 H* Phosphorus Magnesium Total Bilirubin AST ALT Alkaline Phosphatase Total Protein Albumin Globulin Albumin/Globulin Ratio 25-OH Vitamin D Total PTH Intact Calcium (PTH Intact) Ur Creatinine Concen 83.04 U Sodium Concentration 65 05/24/19 05:22 WBC RBC Hgb Hct MCV MCH MCHC RDW Plt Count MPV Neut % (Auto) Lymph % (Auto) [place] % (Auto) Eos % (Auto) Baso % (Auto) Absolute Neuts (auto) Absolute Lymphs (auto) Absolute Monos (auto) Absolute Eos (auto) Absolute Basos (auto) Absolute Nucleated RBC Nucleated RBC % Sodium 138 Potassium 4.0 Chloride 110 Carbon Dioxide 25 Anion Gap 3 BUN 34 H Creatinine 3.46 H Est GFR ( Amer) 20.7 Est GFR (Non-Af Amer) 17.1 BUN/Creatinine Ratio 9.8 Glucose 107 H Calcium 12.6 H Phosphorus 3.0 Magnesium 1.4 L Total Bilirubin AST ALT Alkaline Phosphatase Total Protein Albumin Globulin Albumin/Globulin Ratio 25-OH Vitamin D Total PTH Intact Calcium (PTH Intact) Ur Creatinine Concen U Sodium Concentration Assess/Plan/Problems-Billing Assessment: 83 yo male PMH CKDIV, SSS s/p recent PPM, HTN presents with abdominal discomfort , unsteady gait, weakness, poor po intake. Found to have severe hypercalcemia to 15.6. Had been started on calcitriol 3.5 weeks earlier which is suspected etiology. ELLEN. Improving with IVF and calcitonin. - Patient Problems (1) Hypercalcemia due to a drug Current Visit: Yes Status: Acute Code(s): E83.52 - HYPERCALCEMIA; T50.905A - ADVERSE EFFECT OF UNSP DRUG/MEDS/BIOL SUBST, INIT SNOMED Code(s): 6371435 Comment: thought secondary to recently prescribed calcitriol(04/29). Improvin.6 -> 13.3 -> 12.6 with IVF and calcitonin 4u/kg q12 x2 doses (no e /o tachyphylaxis). Avoiding bisphosphonate treatment as likely to resolve with medication cessation. f/u SPEP/UPEP/light chains as recommended by Nephrology f/u Vitamin D 1,25 -OH and PTH-rp (2) ELLEN (acute kidney injury) Current Visit: Yes Status: Acute Code(s): N17.9 - ACUTE KIDNEY FAILURE, UNSPECIFIED SNOMED Code(s): 71629141 Comment: likely secondary to hypercalcemia and asociated poor po intake given confusion. Improving, back to baseline continue IVF: NS at 100cc/hr monitor volume status closely. Currently euvolemic (3) CKD (chronic kidney disease) stage 4, GFR 15-29 ml/min Current Visit: Yes Status: Acute Code(s): N18.4 - CHRONIC KIDNEY DISEASE, STAGE 4 (SEVERE) SNOMED Code(s): 321122110 Comment: ELLEN on recently worsening baseline trend. ([employer] 3.0 on 03/30) IVF and calcium correction as above would not want HD (per brother base on past discussions with Dr. Olson; He has recently established with Dr. Cruz). (4) Gout Current Visit: No Status: Acute Code(s): M10.9 - GOUT, UNSPECIFIED SNOMED Code(s): 30110287 Comment: -hold allopurinol in setting of acute on chronic renal failure. Allopurinol can also have rare side effect of hypercalcemia. (5) HLD (hyperlipidemia) Current Visit: No Status: Acute Code(s): E78.5 - HYPERLIPIDEMIA, UNSPECIFIED SNOMED Code(s): 35552653 Comment: -Continue statin (6) Hypertension Current Visit: No Status: Acute Code(s): I10 - ESSENTIAL (PRIMARY) HYPERTENSION SNOMED Code(s): 66320384 Comment: - SBP 150-160s - increase home amolidipine from 5mg daily to 10mg daily. - continue home atenolol and clonidine 0.2mg (7) DVT prophylaxis Current Visit: No Status: Acute Code(s): Z29.9 - ENCOUNTER FOR PROPHYLACTIC MEASURES, UNSPECIFIED SNOMED Code(s): 422892785 Comment: -on sc heparin Status and Disposition: medicine inpatient. Discharge after clearing by PT tomorrow Attestation Documenting Resident: Gladys Cherry Supervising Physician: Rasta Alfonso Attending/Supervising Physician Comment: Ca2+ down to 11.2. He is s/p 3 doses of calcitonin(last yesterday afternoon). IVF reduced to 100 cc/hr from 150 cc/hr. [employer] improved to 2.9 which is better than baseline. Still hypertensive and will add lisinopril 2.5mg daily. PT had recommended acute rehab. Would re-eval tomorrow and depending on family wishes likely can go to Rehab vs home with support from his brother tomorrow if current clinical trend continues. Attestation: This service has been performed in part by a resident under the direction of a teaching physician.I, Rasta Alfonso, performed the service, or was physically present during the critical, or joshi portions of the service, furnished by the resident. I participated in the management of the patient.
[2019-05-25] MEDS ORDERED: NS 0.9% 1000 ML** 1,000 ML IV SCH (14:45)
[2019-05-25] MEDS: Lisinopril TAB* 5 MG PO SCH (18:44)
[2019-05-26] MEDS: Heparin VIAL(*) 5000 UNITS/ML VIAL (FIVE THOUSAND) SUBCUT SCH (05:07)
[2019-05-26 06:27] LABS: BUN/Creatinine Ratio 6.8 (8-20); Calcium 11.2 mg/dL (8.6-10.3); EGFR African American 25.2 (>60); EGFR Non-African American 20.8 (>60); Potassium 3.5 mmol/L (3.5-5.0)
[2019-05-26] MEDS: Atorvastatin* 40 MG TAB PO SCH (08:36)
[2019-05-26] MEDS: amLODIPine TAB* 5 MG PO SCH (08:38)
[2019-05-26] MEDS: Lisinopril TAB* 5 MG PO SCH (08:38)
[2019-05-26] MEDS: cloNIDine TAB* 0.1 MG PO SCH (08:39)
[2019-05-26] MEDS: Atenolol TAB* 50 MG PO SCH (08:39)
[2019-05-26 09:12] VITALS: BP 153/82
--- NOTE | 2019-05-26 10:03 | PN ---
Subjective - Subjective Reason for Note: Discharge Note History: I am Bradley العلي's primary care physician. He has advanced renal disease and hypertension. I have reviewed the hospital records. He presented with hypercalcemia due to hypervitaminosis D. His calcium is now down to 11.2 mg /dl. He is hydrated and feeling improved. He has no focal symptoms. Active Problems: Active Problems ELLEN (acute kidney injury) (Acute) N17.9 likely secondary to hypercalcemia and asociated poor po intake given confusion. Improving, back to baseline continue IVF: NS at 100cc/hr monitor volume status closely. Currently euvolemic CKD (chronic kidney disease) stage 4, GFR 15-29 ml/min (Acute) N18.4 ELLEN on recently worsening baseline trend. (CERTIFIED [place] 3.0 on 03/30) IVF and calcium correction as above would not want HD (per brother base on past discussions with Dr. Olson; He has recently established with Dr. Cruz). Hypercalcemia due to a drug (Acute) E83.52, T50.905A thought secondary to recently prescribed calcitriol(04/29). Improvin.6 -> 13.3 -> 12.6 with IVF and calcitonin 4u/kg q12 x2 doses (no e/o tachyphylaxis). Avoiding bisphosphonate treatment as likely to resolve with medication cessation. f/u SPEP/UPEP/light chains as recommended by Nephrology f/u Vitamin D 1,25 -OH and PTH-rp Hypertension (Chronic) I10 - SBP 150-160s - increase home amolidipine from 5mg daily to 10mg daily. - continue home atenolol and clonidine 0.2mg Pacemaker (Chronic) Z95.0 Current Medications: Current Medications Amlodipine Besylate (Norvasc Tab*) 10 mg PO DAILY [facility] Last Admin: 05/26/19 08:38 Dose: 10 mg Atenolol (Tenormin Tab*) 50 mg PO DAILY [facility] Last Admin: 05/26/19 08:39 Dose: 50 mg Atorvastatin Calcium (Lipitor*) 40 mg PO DAILY [facility] Last Admin: 05/26/19 08:36 Dose: 40 mg Clonidine HCl (Catapres Tab*) 0.2 mg PO DAILY [facility] Last Admin: 05/26/19 08:39 Dose: 0.2 mg Heparin Sodium (Porcine) (Heparin Vial(*)) 5,000 units SUBCUT Q8HR [facility] Last Admin: 05/26/19 05:07 Dose: 5,000 units Sodium Chloride (Ns 0.9% 1000 Ml) 1,000 mls @ 100 mls/hr IV PER RATE [facility] Last Admin: 05/25/19 20:16 Dose: 100 mls/hr Lisinopril (Prinivil Tab*) 2.5 mg PO DAILY [facility] Last Admin: 05/26/19 08:38 Dose: 2.5 mg Home Medications: Home Medications Medication Instructions Recorded Confirmed Type Allopurinol TAB* [Zyloprim 100 MG 200 mg PO DAILY 04/06/19 05/23/19 History TAB*] Atenolol TAB* [Tenormin TAB* 25 MG] 50 mg PO DAILY 04/06/19 05/23/19 History Atorvastatin* [Lipitor 40 MG*] 40 mg PO DAILY 04/06/19 05/23/19 History cloNIDine TAB* [Catapres 0.1 MG 0.2 mg PO DAILY 04/06/19 05/23/19 History TAB*] Calcitriol CAP* [Rocaltrol CAP*] 0.5 mcg PO BID 05/23/19 05/23/19 History amLODIPine TAB* [Norvasc 5 mg TAB*] 5 mg PO BEDTIME 05/23/19 05/23/19 History Allergies: Allergies Allergy/AdvReac Type Severity Reaction Status Date / Time No Known Allergies Allergy Verified 04/06/19 12:13 Objective - Vital Signs Vital Signs: Vital Signs 05/25/19 05/25/19 05/25/19 11:33 15:12 19:15 Temperature 97.3 F 98.2 F Pulse Rate 70 59 64 Respiratory 20 16 16 Rate Blood Pressure 159/88 155/88 146/70 (mmHg) O2 Sat by Pulse 100 100 100 Oximetry 05/25/19 05/25/19 05/26/19 20:00 23:15 03:15 Temperature 98.5 F 98.5 F Pulse Rate 61 66 Respiratory 18 20 20 Rate Blood Pressure 146/83 148/82 (mmHg) O2 Sat by Pulse 96 98 Oximetry 05/26/19 05/26/19 07:12 08:00 Temperature 98.7 F Pulse Rate 73 Respiratory 18 18 Rate Blood Pressure 153/82 (mmHg) O2 Sat by Pulse 100 Oximetry - Intake and Output Intake and Output: Intake & Output 05/23/19 05/24/19 05/25/19 05/26/19 11:59 11:59 11:59 11:59 Intake Total 3548 3645 2968 Output Total 893 685 3537 Balance 2598 3060 1518 Weight 179 lb 9.6 oz 183 lb 11.2 oz 185 lb 9.6 oz Intake: IV Fluids 3008 2625 2008 NS 2007 2624 2007 Oral 540 1020 960 Output: Urine 885 486 1083 Other: Estimated Void Medium # Bowel Movements 1 Estimated Stool Amount Large # Voids 3 1 4 ADLs: Meal Record Start: 05/23/19 17: 18 Freq: DAILY@0900,1400,1800 Status: Active Protocol: Created 05/23/19 17:18 System (Rec: 05/23/19 17:18 System [id number]-C06) Document 05/23/19 18:00 [id number] (Rec: 05/23/19 19:57 [id number] TELE-C11) Document 05/24/19 09:00 [id number] (Rec: 05/24/19 11:55 [id number] TELE-C07) Document 05/24/19 14:00 [id number] (Rec: 05/24/19 14:48 [id number] TELE-C07) Document 05/24/19 18:00 [id number] (Rec: 05/24/19 18:35 [id number] TELE-C09) Document 05/25/19 09:00 [id number] (Rec: 05/25/19 09:08 [id number] TELE-C11) Document 05/25/19 14:00 [id number] (Rec: 05/25/19 14:14 [id number] TELE-C11) Document 05/25/19 18:00 [id number] (Rec: 05/25/19 18:01 [id number] TELE-C01) Document 05/26/19 09:00 [id number] (Rec: 05/26/19 09:13 [id number] TELE-C09) Intake and Output Start: 05/23/19 13: 52 Freq: Status: Active Protocol: Created 05/23/19 13:52 System (Rec: 05/23/19 13:52 System [id number]) Intake and Output Start: 05/23/19 17: 18 Freq: DAILY@0600,1400,2200 Status: Active Protocol: Created 05/23/19 17:18 System (Rec: 05/23/19 17:18 System TELE-C06) Document 05/23/19 20:45 [id number] (Rec: 05/23/19 20:45 [id number] TELE-C11) Document 05/24/19 05:48 [id number] (Rec: 05/24/19 05:48 [id number] TELE-C06) Document 05/24/19 14:00 [id number] (Rec: 05/24/19 14:48 [id number] TELE-C07) Document 05/24/19 22:00 [id number] (Rec: 05/24/19 23:43 [id number] TELE-C07) Document 05/25/19 06:00 [id number] (Rec: 05/25/19 06:20 [id number] TELE-C09) Document 05/25/19 14:00 [id number] (Rec: 05/25/19 14:14 [id number] TELE-C11) Document 05/25/19 21:45 [id number] (Rec: 05/25/19 21:46 [id number] TELE-C07) Document 05/26/19 06:00 [id number] (Rec: 05/26/19 06:05 [id number] TELE-C07) - Physical Exam General Physical Exam Comment: He is deaf, 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 He was able to stand from lying in his bed, walk long term down the dugan and sit down in a chair independently General: No Cyanosis, No Anemia, No Jaundice, No Clubbing Lungs and Chest: Yes: Chest Expansion Full, Chest Expansion Symetrica, Percussion Note Resonant, Vessicular Breath Sounds. No: Crackles, Wheezes Heart Rate and Rhythm: Regular Additional Cardiovascular: Yes: Normal Heart Sounds. No: Heart Murmur, Pedal Edema Abdominal Exam: Yes: Soft, Bowel Sounds Present. No: Distention, Abdominal Tenderness Results - Results Lab Results: Laboratory Results - last 24 hr 05/26/19 05:27 Sodium 141 Potassium 3.5 Chloride 113 H Carbon Dioxide 24 Anion Gap 4 BUN 20 Creatinine 2.92 H Est GFR ( Amer) 25.2 Est GFR (Non-Af Amer) 20.8 BUN/Creatinine Ratio 6.8 L Glucose 85 Calcium 11.2 H Assessment - Problem List Assessment: Patient Problems ELLEN (acute kidney injury) (Acute) CKD (chronic kidney disease) stage 4, GFR 15-29 ml/min (Acute) Hypercalcemia due to a drug (Acute) Hypertension (Chronic) Pacemaker (Chronic) DVT prophylaxis (Chronic) Full code status (Chronic) Gout (Chronic) HLD (hyperlipidemia) (Chronic) Plan: ELLEN (acute kidney injury) (Acute) This is recovered CKD (chronic kidney disease) stage 4, GFR 15-29 ml/min (Acute) This is chronic and persistent Hypercalcemia due to a drug (Acute) His calcium is 11.2 mg/dl. The intact PTH is appropriate for this calcium level. This is due to hypervitaminosis D - excess calcitriol Hypertension (Acute) This is now at an acceptable level. Secondary diagnoses Pacemaker (Chronic) Telemetry shows pacemaker dependence. DVT prophylaxis (Acute) Full code status (Acute) Gout (Acute) HLD (hyperlipidemia) (Acute) I spoke to Bradley العلي and his brother Papo العلي (on the phone). He is ready for discharge.
--- NOTE | 2019-05-26 12:27 | DS ---
CC: Dr. Cruz at [facility] in [place] * DISCHARGE SUMMARY: DATE OF ADMISSION: 05/23/19 DATE OF DISCHARGE: 05/26/19 DISCHARGE DIAGNOSES: 1. Hypercalcemia. 2. Hypovitaminosis D. 3. Hypertension. 4. Acute exacerbation of stage IV chronic renal insufficiency, hypertension accelerated. SECONDARY DIAGNOSES: 1. Severe hearing loss. 2. Hyperlipidemia. 3. Gout. 4. Cardiac pacemaker. DISPOSITION: Home. CONDITION ON THE DAY OF DISCHARGE: Fair. HISTORY: Bradley العلي is an 83-year-old -[place] male. His presentation is documented in Rasta Alfonso MD's admitting history and physical. In short, he had an office visit to Dr. Cruz in Nephrology and was found to be hypercalcemic. He was sent to the emergency room. He had disequilibrium and confusion, and some vomiting, and some weight loss. EXAMINATION: Temperature 97.4, pulse 61, respirations 18, blood pressure 135/ 86 ranging up to 159/105, oxygen saturation 98% on room air. He was deaf. Cardiovascular systems: Pulse is regular. Heart sounds were normal. No added sounds or murmurs. No edema. Chest was clear. Abdomen: Benign. He had decreased skin turgor and dry oral mucosa. He was alert and oriented, and had no focal neurological deficit. Initial plan for hypercalcemia: Discontinue calcitriol. IV hydration and calcitonin, nephrology consultation, IV fluids to restore renal insufficiency. CONSULTATIONS: Dr. Cathy Mcgill. Her note is part of the electronic medical records as she noted that he had hypercalcemia likely due to calcitriol. Recommended empiric treatment and followup evaluation, if the calcium did not come down. LABORATORY STUDIES: At presentation, white count 5.7, hemoglobin 13.9, hematocrit 42, platelets 162, normal differential. Chemistry at presentation: Sodium 138, potassium 3.8, chloride 104, bicarbonate 31, anion gap 3, BUN 38, creatinine 3.94, eGFR of 17.8, glucose 112, calcium 15.6. Normal liver function tests. Albumin 3.8, 25-hydroxyvitamin D 52.2, intact PTH 16.7. IMAGING: Brain CT scan at presentation: No acute process, involutional change and chronic small vessel disease. EKG: Atrial paced rhythm, Q waves in inferior leads, rate 62, TX interval 205, QRS axis -21. HOSPITAL PROGRESS: With rehydration, the calcium came down; at 11:30, it was 12.6; at 12.01, it was 11.2, and on the day of discharge, it was 12.2. His blood pressure remained between 144 to 159 systolic/70 to 88 diastolic, and he was hemodynamically stable. Renal Function: His baseline creatinine is between 2.75 and 3.55. During the hospitalization, it came down to 2.9. On the day of discharge, he is feeling well. He has no focal pain. He denies cough or shortness of breath or chest pain. His digestion is normal. He feels ready to go home. PHYSICAL EXAMINATION ON DAY OF DISCHARGE: Vital Signs: Temperature 98.7, pulse 73, respirations 18, oxygen saturation 100% on room air, blood pressure 153/82. He is warm and well perfused, hydrated. He has no cyanosis, anemia, jaundice, clubbing, or adenopathy. Cardiovascular System: His pulse was regular. Heart sounds were normal, no added sounds or murmurs, no pedal edema. Respiratory System: His chest was clear. Abdomen: No distention, masses, tenderness or organomegaly. Nervous System: He is alert and oriented. He was able to stand up independently from a lying position and walk prison down the dugan using a cane without any support. ASSESSMENT AND PLAN: 1. Hypercalcemia. This was likely due to taking excess vitamin D and calcitriol. I have stopped the calcitriol and we will leave this to the management of Nephrology as an outpatient. His calcium today is 11.2 and he is no longer in any danger. He is safe to go home. 2. Aqwck-up-msejptx renal insufficiency. This is now back to baseline. 3. Cardiac pacemaker: This is functioning on telemetry. He is pacemaker dependent without any dysrhythmias. 4. Essential hypertension. This is being under reasonable control during his hospital stay. 5. Hyperlipidemia. He will continue taking his atorvastatin. 6. History of gout. This is not exacerbated at the present time. 7. Severe hearing impairment. This continues to be a barrier. I spoke to both the patient and his brother, Papo العلي, with whom he lives. He is going to come by and bring him home today. He will have a transition of care visit within the next few days in my office and we will recheck his lab work at that time. DISCHARGE MEDICATIONS: 1. Atenolol 50 mg daily. 2. Clonidine 0.2 mg daily. 3. Allopurinol 200 mg daily. 4. Atorvastatin 40 mg daily. 5. Amlodipine 5 mg daily. He will stop calcitriol and vitamin D. [id number]/[facility] #: [id number] [facility]
[2019-05-26 14:35] LABS: Kappa Free Light Chain 10.5 mg/dL; Lambda Free Light Chain 5.97 mg/dL
[2019-05-26 17:14] LABS: Albumin/Globulin Ratio 0.91; Gamma Globulin 1.6 g/dL (0.6-1.6); Total Protein(PEP) 6.2 g/dL (6.3 - 7.9)
--- OUTSIDE RECORDS SUMMARY | 2019-05-27 15:00 | XMS REPORT ---
:1935 Author Organization [facility] Care Team Providers Name Role Phone Unavailable Unavailable Unavailable Problems This patient has no known problems. Allergies, Adverse Reactions, Alerts Allergy Allergy Status Severity Reaction(s) Onset Inactive Treating Comments Name Type Date Date Clinician Uncoded Unknown Active Unknown Reaction 2019-05 Interface free-text allergy Medications Ordered Filled Start Stop Current Ordering Indication Dosage Frequency Signature Comments Components Medication Medication Date Date Medication? Clinician (SIG) Name Name allopurinol allopurinol 2018-06 Yes Unknown Unknown Unknown 100 mg 100 mg 0-13 tablet tablet atenolol 25 atenolol 25 2018-06 Yes Unknown Unknown Unknown mg tablet mg tablet 0-13 atorvastati atorvastati 2018-06 Yes Unknown Unknown Unknown n 40 mg n 40 mg 0-13 tablet tablet cloNIDine cloNIDine 2018-06 Yes Unknown Unknown Unknown HCl 0.1 mg HCl 0.1 mg 0-13 tablet tablet amLODIPine amLODIPine 2018-06 Yes Unknown Unknown Unknown 5 mg tablet 5 mg tablet 07-23 calcitriol calcitriol 2018-06- Unknown Unknown Unknown 0.25 mcg 0.25 mcg 07-23 capsule capsule Vital Signs Vital Name Observation Time Observation Value Comments SYSTOLIC mm[Hg] 2019-05-26 18:09:09 153 mm[Hg] mm[Hg] Method: Sit DIASTOLIC mm[Hg] 2019-05-26 18:09:09 82 mm[Hg] mm[Hg] Method: Sit PULSE 2019-05-26 18:09:09 73 /min /min RESP RATE 2019-05-26 18:09:09 18 /min /min TEMP 2019-05-26 18:09:09 98.7 [degF] Procedures This patient has no known procedures. Results Test Description Test Time Test Comments Text Results Atomic Results Result Comments Serum or plasma calcium 2019-05-26 05:27:00 Identifier [id number] Result Unknown measurement (mass/volume) Time 2019-05-26 05:27:00 Test Item Value Reference Range Comments Serum or plasma calcium measurement (mass/volume) (test 11.2 mg/dL Unknown Unknown F code = 26761-7) Ordering Physician UnknownSerum or plasma carbon dioxide, total measurement ( moles/volume)2019-05-26 05:27:00Identifier 8-9 Result Time 2019-05-26 05:27: 00Unknown Test Item Value Reference Range Comments Serum or plasma carbon dioxide, total 24 mmol/L Unknown Unknown F measurement (moles/volume) (test code = 8-9) Ordering Physician UnknownSerum or plasma chloride measurement (moles/volume) 2019-05-26 05:27:00Identifier 2075-0 Result Time 2019-05-26 05:27:00Unknown Test Item Value Reference Range Comments Serum or plasma chloride measurement 113 mmol/L Unknown Unknown F (moles/volume) (test code = 2075-0) Ordering Physician UnknownSerum or plasma creatinine measurement (mass/volume) 2019-05-26 05:27:00Identifier 2160-0 Result Time 2019-05-26 05:27:00Unknown Test Item Value Reference Range Comments Serum or plasma creatinine measurement 2.92 mg/dL Unknown Unknown F (mass/volume) (test code = 2160-0) Ordering Physician UnknownSerum glucose measurement (mass/volume)2019-05-26 05: 27:00Identifier 2345-7 Result Time 2019-05-26 05:27:00Unknown Test Item Value Reference Range Comments Serum glucose measurement (mass/volume) 85 mg/dL Unknown Unknown F (test code = 2345-7) Ordering Physician UnknownSerum or plasma potassium measurement (moles/volume) 2019-05-26 05:27:00Identifier 2823-3 Result Time 2019-05-26 05:27:00Unknown Test Item Value Reference Range Comments Serum or plasma potassium measurement 3.5 mmol/L Unknown Unknown F (moles/volume) (test code = 2823-3) Ordering Physician UnknownSerum or plasma sodium measurement (moles/volume)05-26 05:27:00Identifier 2951-2 Result Time 2019-05-26 05:27:00Unknown Test Item Value Reference Range Comments Serum or plasma sodium measurement 141 mmol/L Unknown Unknown F (moles/volume) (test code = 2951-2) Ordering Physician UnknownSerum or plasma urea nitrogen measurement (mass/volume )2019-05-26 05:27:00Identifier 3094-0 Result Time 2019-05-26 05:27:00Unknown Test Item Value Reference Range Comments Serum or plasma urea nitrogen measurement 20 mg/dL Unknown Unknown F (mass/volume) (test code = 3094-0) Ordering Physician UnknownSerum or plasma urea nitrogen/creatinine [id number]- 02 05:27:00Identifier 3097-3 Result Time 2019-05-26 05:27:00Unknown Test Item Value Reference Range Comments Serum or plasma urea nitrogen/creatinine ratio 6.8 Unknown Unknown F (test code = 3097-3) Ordering Physician UnknownSerum or plasma anion [id number] 05:27: 00Identifier 27448-2 Result Time 2019-05-26 05:27:00Unknown Test Item Value Reference Range Comments Serum or plasma anion gap (test code = 4 mmol/L Unknown Unknown F 03656-2) Ordering Physician UnknownEstimated glomerular filtration rate (GFR) non- [id number] 05:27:00Identifier 99450-7 Result Time 2019-05-26 05: 27:00Unknown Test Item Value Reference Range Comments Estimated glomerular filtration rate (GFR) 20.8 Unknown Unknown F non- (test code = 25643-4) Ordering Physician UnknownSerum or plasma magnesium measurement (mass/volume) 2019-05-25 07:38:00Identifier 43761-3 Result Time 2019-05-25 07:38:00Unknown Test Item Value Reference Range Comments Serum or plasma magnesium measurement 1.5 mg/dL Unknown Unknown F (mass/volume) (test code = 48153-8) Ordering Physician UnknownAutomated blood platelet mean volume nnkaujmllqi0136- 12-01 07:38:00Identifier 89346-9 Result Time 2019-05-25 07:38:00Unknown Test Item Value Reference Range Comments Automated blood platelet mean volume 8.6 fL Unknown Unknown F measurement (test code = 36527-4) Ordering Physician UnknownAutomated blood leukocytes count corrected for nucleated erythrocytes (number/volume)2019-05-25 07:38:00Identifier 24664-5 Result Time 2019-05-25 07:38:00Unknown Test Item Value Reference Range Comments Automated blood leukocytes count 5.1 10^3/uL Unknown Unknown F corrected for nucleated erythrocytes (number/volume) (test code = 74323-2) Ordering Physician UnknownAutomated blood nucleated erythrocytes olmvqwbfz6076- 12-01 07:38:00Identifier 34977-9 Result Time 2019-05-25 07:38:00Unknown Test Item Value Reference Range Comments Automated blood nucleated erythrocytes 0.0 Unknown Unknown F detection (test code = 68970-4) Ordering Physician UnknownAutomated blood hematocrit (percentage)2019-05-25 07: 38:00Identifier 4544-3 Result Time 2019-05-25 07:38:00Unknown Test Item Value Reference Range Comments Automated blood hematocrit (percentage) (test 38 % Unknown Unknown F code = 4544-3) Ordering Physician UnknownAutomated blood monocytes/100 [id number] 07: 38:00Identifier 5905-5 Result Time 2019-05-25 07:38:00Unknown Test Item Value Reference Range Comments Automated blood monocytes/100 leukocytes 6.6 % Unknown Unknown F (test code = 5905-5) Ordering Physician UnknownAutomated blood basophil count (number/volume) 07:38:00Identifier 704-7 Result Time 2019-05-25 07:38:00Unknown Test Item Value Reference Range Comments Automated blood basophil count 0.1 10^3/ul Unknown Unknown F (number/volume) (test code = 704-7) Ordering Physician UnknownAutomated blood basophils/100 [id number] 07: 38:00Identifier 706-2 Result Time 2019-05-25 07:38:00Unknown Test Item Value Reference Range Comments Automated blood basophils/100 leukocytes 1.3 % Unknown Unknown F (test code = 706-2) Ordering Physician UnknownAutomated blood eosinophil count (number/volume)05-25 07:38:00Identifier 711-2 Result Time 2019-05-25 07:38:00Unknown Test Item Value Reference Range Comments Automated blood eosinophil count 0.2 10^3/ul Unknown Unknown F (number/volume) (test code = 711-2) Ordering Physician UnknownAutomated blood eosinophils/100 [id number] 07:38:00Identifier 713-8 Result Time 2019-05-25 07:38:00Unknown Test Item Value Reference Range Comments Automated blood eosinophils/100 leukocytes 3.9 % Unknown Unknown F (test code = 713-8) Ordering Physician UnknownBlood hemoglobin measurement (mass/volume)2019-05-25 07:38:00Identifier 718-7 Result Time 2019-05-25 07:38:00Unknown Test Item Value Reference Range Comments Blood hemoglobin measurement 12.5 g/dL Unknown Unknown F (mass/volume) (test code = 718-7) Ordering Physician UnknownBlood lymphocytes automated count (number/volume)05-25 07:38:00Identifier 731-0 Result Time 2019-05-25 07:38:00Unknown Test Item Value Reference Range Comments Blood lymphocytes automated count 1.3 10^3/ul Unknown Unknown F (number/volume) (test code = 731-0) Ordering Physician UnknownAutomated blood lymphocytes/100 [id number] 07:38:00Identifier 736-9 Result Time 2019-05-25 07:38:00Unknown Test Item Value Reference Range Comments Automated blood lymphocytes/100 leukocytes 25.7 % Unknown Unknown F (test code = 736-9) Ordering Physician UnknownBlood monocytes automated count (number/volume)2019-05 07:38:00Identifier 742-7 Result Time 2019-05-25 07:38:00Unknown Test Item Value Reference Range Comments Blood monocytes automated count 0.3 10^3/ul Unknown Unknown F (number/volume) (test code = 742-7) Ordering Physician UnknownAutomated blood neutrophils/100 [id number] 07:38:00Identifier 770-8 Result Time 2019-05-25 07:38:00Unknown Test Item Value Reference Range Comments Automated blood neutrophils/100 leukocytes 62.5 % Unknown Unknown F (test code = 770-8) Ordering Physician UnknownBlood nucleated erythrocytes automated count (number/ volume)2019-05-25 07:38:00Identifier 771-6 Result Time 2019-05-25 07:38: 00Unknown Test Item Value Reference Range Comments Blood nucleated erythrocytes automated 0.0 10^3/ul Unknown Unknown F count (number/volume) (test code = 771-6) Ordering Physician UnknownAutomated blood platelet count (number/volume) 07:38:00Identifier 777-3 Result Time 2019-05-25 07:38:00Unknown Test Item Value Reference Range Comments Automated blood platelet count 161 10^3/uL Unknown Unknown F (number/volume) (test code = 777-3) Ordering Physician UnknownAutomated erythrocyte mean corpuscular hemoglobin ( mass per erythrocyte)2019-05-25 07:38:00Identifier 785-6 Result Time 2019-05-25 07:38:00Unknown Test Item Value Reference Range Comments Automated erythrocyte mean corpuscular 31 pg Unknown Unknown F hemoglobin (mass per erythrocyte) (test code = 785-6) Ordering Physician UnknownAutomated erythrocyte mean corpuscular hemoglobin concentration measurement (mass/[id number] 07:38:00Identifier 786-4 Result Time 2019-05-25 07:38:00Unknown Test Item Value Reference Range Comments Automated erythrocyte mean corpuscular 33 g/dL Unknown Unknown F hemoglobin concentration measurement (mass/vol (test code = 786-4) Ordering Physician UnknownAutomated erythrocyte mean corpuscular [id number]- 01 07:38:00Identifier 787-2 Result Time 2019-05-25 07:38:00Unknown Test Item Value Reference Range Comments Automated erythrocyte mean corpuscular volume 93 fL Unknown Unknown F (test code = 787-2) Ordering Physician UnknownAutomated erythrocyte distribution width [id number]- 01 07:38:00Identifier 788-0 Result Time 2019-05-25 07:38:00Unknown Test Item Value Reference Range Comments Automated erythrocyte distribution width ratio 15 % Unknown Unknown F (test code = 788-0) Ordering Physician UnknownAutomated blood erythrocyte count (number/volume)05-25 07:38:00Identifier 789-8 Result Time 2019-05-25 07:38:00Unknown Test Item Value Reference Range Comments Automated blood erythrocyte count 4.07 10^6 /uL Unknown Unknown F (number/volume) (test code = 789-8) Ordering Physician UnknownCT biopsy [id number] 07:38:00Identifier [id number] Result Time 2019-05-25 07:38:00Unknown Test Item Value Reference Range Comments CT biopsy liver (test code = IJC0302) 3.2 10^3/ul Unknown Unknown F Ordering Physician UnknownSerum or plasma phosphate measurement (mass/volume) 2019-05-24 05:22:00Identifier 2777-1 Result Time 2019-05-24 05:22:00Unknown Test Item Value Reference Range Comments Serum or plasma phosphate measurement 3.0 mg/dL Unknown Unknown F (mass/volume) (test code = 2777-1) Ordering Physician UnknownUrine creatinine measurement (mass/volume)2019-05-23 18:06:00Identifier 2161-8 Result Time 2019-05-23 18:06:00Unknown Test Item Value Reference Range Comments Urine creatinine measurement 83.04 mg/dL Unknown Unknown F (mass/volume) (test code = 2161-8) Ordering Physician UnknownUrine sodium measurement (moles/volume)2019-05-23 18: 06:00Identifier 2955-3 Result Time 2019-05-23 18:06:00Unknown Test Item Value Reference Range Comments Urine sodium measurement (moles/volume) 65 mmol/L Unknown Unknown F (test code = 2955-3) Ordering Physician UnknownSerum or plasma intact parathyroid hormone (iPTH) measurement (moles/volume)2019-05-23 14:27:00Identifier 61067-9 Result Time 2018 14:27:00Unknown Test Item Value Reference Range Comments Serum or plasma intact parathyroid 16.7 pg/mL Unknown Unknown F hormone (iPTH) measurement (moles/volume) (test code = 99619-5) Ordering Physician UnknownSerum or plasma alanine aminotransferase measurement ( enzymatic activity/volume)2019-05-23 14:27:00Identifier 1742-6 Result Time 05-23 14:27:00Unknown Test Item Value Reference Range Comments Serum or plasma alanine aminotransferase 13 U/L Unknown Unknown F measurement (enzymatic activity/volume) (test code = 1742-6) Ordering Physician UnknownSerum or plasma albumin/globulin mass [id number] 14:27:00Identifier 1759-0 Result Time 2019-05-23 14:27:00Unknown Test Item Value Reference Range Comments Serum or plasma albumin/globulin mass ratio 1.1 Unknown Unknown F (test code = 1759-0) Ordering Physician UnknownSerum or plasma calcium measurement (mass/volume)05-23 14:27:00Identifier 58936-3 Result Time 2019-05-23 14:27:00Unknown Test Item Value Reference Range Comments Serum or plasma calcium measurement 15.6 mg/dL Unknown Unknown F (mass/volume) (test code = 68348-7) Ordering Physician UnknownSerum or plasma aspartate aminotransferase measurement (enzymatic activity/volume)2019-05-23 14:27:00Identifier 0-8 Result Time 2019-05-23 14:27:00Unknown Test Item Value Reference Range Comments Serum or plasma aspartate aminotransferase 25 U/L Unknown Unknown F measurement (enzymatic activity/volume) (test code = 1920-8) Ordering Physician UnknownSerum or plasma total bilirubin measurement (mass/ volume)2019-05-23 14:27:00Identifier 1974-2 Result Time 2019-05-23 14:27: 00Unknown Test Item Value Reference Range Comments Serum or plasma total bilirubin 0.70 mg/dL Unknown Unknown F measurement (mass/volume) (test code = 1974-) Ordering Physician UnknownSerum or plasma calcidiol measurement (mass/volume) 2019-05-23 14:27:00Identifier 1988-08 Result Time 2019-05-23 14:27:00Unknown Test Item Value Reference Range Comments Serum or plasma calcidiol measurement 52.2 ng/mL Unknown Unknown F (mass/volume) (test code = 1988-) Ordering Physician UnknownSerum total protein measurement (mass/volume) 14:27:00Identifier 2885-2 Result Time 2019-05-23 14:27:00Unknown Test Item Value Reference Range Comments Serum total protein measurement 7.3 g/dL Unknown Unknown F (mass/volume) (test code = 2885-2) Ordering Physician UnknownSerum or plasma albumin measurement by bromocresol green (BCG) dye binding method ([id number] 14:27:00Identifier 27915-0 Result Time 2019-05-23 14:27:00Unknown Test Item Value Reference Range Comments Serum or plasma albumin measurement by 3.8 g/dL Unknown Unknown F bromocresol green (BCG) dye binding method (ma (test code = 59738-0) Ordering Physician UnknownSerum or plasma alkaline phosphatase measurement ( enzymatic activity/volume)2019-05-23 14:27:00Identifier 6768-6 Result Time 05-23 14:27:00Unknown Test Item Value Reference Range Comments Serum or plasma alkaline phosphatase 71 U/L Unknown Unknown F measurement (enzymatic activity/volume) (test code = 6768-6) Ordering Physician Unknown
--- OUTSIDE RECORDS SUMMARY | 2019-05-27 15:00 | XMS REPORT | Continuity of Care Document ---
:1935 External Reference #:[id number] Author Name Rad Cruz MD (transmitted by agent of provider Thao Duncan) Address [address] [place] [address] Care Team Providers Name Role Phone Ulysses Antunez MD - Family Care Team Information Rock Dust Sprayer [phone] Medicine Problems Description No Information Available Social History Type Date Description Comments Sex Unknown ETOH Use Denies alcohol use Tobacco Use Start: Unknown Patient has never smoked Recreational Drug Use Denies Drug Use Smoking Status Reviewed: 04/21/19 Patient has never smoked Allergies, Adverse Reactions, Alerts Description No Known Drug Allergies Medications Active Medications SIG Qnty Indications Ordering Provider Date Amlodipine Besylate 1 tab by mouth 90tabs I12.9 Rad Ching 04/21/2019 5mg once day at MD Nancy Tablets bedtime Atenolol 1 by mouth every Unknown 25mg Tablets day Clonidine HCL 1 by mouth twice Unknown 0.2mg a day Tablets Allopurinol 2 by mouth every Unknown 100mg Tablets day Atorvastatin Calcium 1 by mouth every Unknown 40mg day Tablets Vitamin B12 once daily Unknown 3000mcg Tablets Sub Tylenol 8 Hour every 6 hours as Unknown 650mg needed Tablets ER Immunizations Description No Information Available Vital Signs Date Vital Result Comment 04/21/2019 1:30pm Height 67 inches 5'7" Weight 194.00 lb Heart Rate 66 /min BP Systolic Sitting 148 mmHg right arm reg cuff BP Diastolic Sitting 93 mmHg right arm reg cuff O2 % BldC Oximetry 97 % room air BMI (Body Mass Index) 30.4 kg/m2 04/17/2019 9:40am Height 67 inches 5'7" Weight 194.00 lb with shoes Heart Rate 62 /min BP Systolic Sitting 142 mmHg Rue reg cuff BP Diastolic Sitting 94 mmHg Rue reg cuff Respiratory Rate 13 /min BMI (Body Mass Index) 30.4 kg/m2 Ejection Fraction 60-65% ECHO 04/07/2019 Results Test Date Facility Test Result H/L Range Note Neph Routine 04/19/2019 [facility] Total Protein 98 mg/dL [address] [place] [address] [phone] Creatinine Random Urine 112.20 mg/dL CBC Auto 04/19/2019 [facility] White Blood 5.1 10^3/uL Normal 3.5-10.[address] [place] [address] [phone] Red Blood Count 4.50 10^6/uL Normal 4.18-5.48 Hemoglobin 13.5 g/dL Low 14.0-18.0 Hematocrit 42 % Normal 42-52 Mean Corpuscular Volume 94 fL Normal 80-94 Mean Corpuscular Hemoglobin 30 pg Normal 27-31 Mean Corpuscular HGB Conc 32 g/dL Normal 31-36 Red Cell Distribution Width 15 % Normal 10-15 Platelet Count 169 10^3/uL Normal 150-450 Mean Platelet Volume 8.4 fL Normal 7.4-10.4 Abs Neutrophils 2.9 10^3/uL Normal 1.5-7.7 Abs Lymphocytes 1.4 10^3/uL Normal 1.0-4.8 Abs Monocytes 0.5 10^3/uL Normal 0-0.8 Abs Eosinophils 0.2 10^3/uL Normal 0-0.6 Abs Basophils 0.1 10^3/uL Normal 0-0.2 Abs Nucleated RBC 0.0 10^3/uL Granulocyte % 57.2 % Lymphocyte % 26.6 % Monocyte % 9.9 % Eosinophil % 4.4 % Basophil % 1.9 % Nucleated Red Blood Cells % 0.1 Basic Metabolic 04/19/2019 [facility] Sodium 141 mmol/L Normal 135-[address] [place] [address] [phone] Potassium 3.9 mmol/L Normal 3.5-5.0 Chloride 107 mmol/L Normal 101-111 Co2 Carbon Dioxide 25 mmol/L Normal 22-32 Anion Gap 9 mmol/L Normal 2-11 Glucose 93 mg/dL Normal 70-100 Blood Urea Nitrogen 37 mg/dL High 6-24 Creatinine 3.05 mg/dL High 0.67-1.17 BUN/Creatinine Ratio 12.1 Normal 8-20 Calcium 10.3 mg/dL Normal 8.6-10.3 Egfr Non- 19.8 >60 Egfr 24.0 >60 1 Urinalysis Profile 04/19/2019 [facility] Urine Color Yellow [address] [place] [address] [phone] Urine Appearance Clear Urine Specific [place] 1.012 Normal 1.010-1.030 Urine pH 6.0 Normal 5-9 Urine Urobilinogen Negative Negative Urine Ketones Negative Negative Urine Protein 2+(100 mg/dL) Abnormal Negative Urine Leukocytes Negative Negative Urine Blood Negative Negative Urine Nitrite Negative Negative Urine Bilirubin Negative Negative Urine Glucose Negative Negative Urine White Blood Cell Absent Absent Urine Red Blood Cell Absent Absent Urine Bacteria Absent Absent 1 Because ethnic data is not always readily available, this report includes an eGFR for both -Americans and non- Americans. The National Kidney Disease Education Program (NKDEP) does not endorse the use of the MDRD equation for patients that are not between the ages of 18 and 70, are , have extremes of body size, muscle mass, or nutritional status, or are non- or non-. According to the National Kidney Foundation, irrespective of diagnosis, the stage of the disease is based on the level of kidney function: Stage Description GFR(mL/min/1.73 m(2)) 1 Kidney damage with normal or decreased GFR 90 2 Kidney damage with mild decrease in GFR 60-89 3 Moderate decrease in GFR 30-59 4 Severe decrease in GFR 15-29 5 Kidney failure <15 (or dialysis) Procedures Date Code Description Status 04/09/2019 40578 Perm Pacemaker Av Sequential Atrial And Ventricular Completed 04/07/2019 46476 ECHO Transthorasic Realtime 2D W Doppler & Color Flow Hosp Completed Medical Devices Description No Information Available Encounters Type Date Location Provider Dx Diagnosis Office Visit 04/21/2019 [facility] Rad Ching I12.9 Hypertensive chronic 1:00p MD Nancy kidney disease w stg 1-4/unsp chr kdny N18.4 Chronic kidney disease, stage 4 (severe) Office Visit 04/17/2019 9:30a [facility] Rosa Mccann, R55 Syncope and Of [facility] N.PLeo collapse Z95.0 Presence of cardiac pacemaker Z48.01 Encounter for change or removal of surgical wound dressing I12.9 Hypertensive chronic kidney disease w stg 1-4/unsp chr kdny N18.3 Chronic kidney disease, stage 3 (moderate) Office Visit 04/08/2019 9:15a [facility] Moshe Mock I49.5 Sick sinus Of Clint Marrero M.D. syndrome Office Visit 04/07/2019 10:37a [facility] Moshe Mock R55 Syncope and Of Clint Marrero M.D. collapse R00.1 Bradycardia, unspecified Office Visit 04/07/2019 8:47a [facility] Milvia Villavicencio, R55 Syncope and Assoc,pc PEGGY collapse Hospitalists I10 Essential (primary) hypertension E78.5 Hyperlipidemia, unspecified M10.9 Gout, unspecified N18.3 Chronic kidney disease, stage 3 (moderate) Office Visit 04/06/2019 8:46a [facility] Anushka Lu, R55 Syncope and Assoc,pc collapse Hospitalists I10 Essential (primary) hypertension E78.5 Hyperlipidemia, unspecified M10.9 Gout, unspecified N18.3 Chronic kidney disease, stage 3 (moderate) Assessments Date Code Description Provider 04/21/2019 I12.9 Hypertensive chronic kidney disease with Rad Cruz MD stage 1 through stage 4 chronic kidney disease, or unspecified chronic kidney disease 04/21/2019 N18.4 Chronic kidney disease, stage 4 (severe) Rad Cruz MD 04/17/2019 R55 Syncope and collapse Rosa Arora. Ramy, N.P. 04/17/2019 Z95.0 Presence of cardiac pacemaker Rosa Arora. Ramy, N.P. 04/17/2019 Z48.01 Encounter for change or removal of surgical Rosa S. Ramy , N.P. wound dressing 04/17/2019 I12.9 Hypertensive chronic kidney disease with Rosa S. Ramy, N.P. stage 1 through stage 4 chronic kidney disease, or unspecified chronic kidney disease 04/17/2019 N18.3 Chronic kidney disease, stage 3 (moderate) Rosa S. Ramy, N.P. 04/09/2019 I49.5 Sick sinus syndrome Nina Sanders M.D. 04/09/2019 Z95.0 Presence of cardiac pacemaker Nina Sanders M.D. 04/08/2019 I49.5 Sick sinus syndrome Moshe Marrero M.D. 04/07/2019 R55 Syncope and collapse Moshe Marrero M.D. 04/07/2019 R00.1 Bradycardia, unspecified Moshe Marrero M.D. 04/07/2019 R55 Syncope and collapse PEGGY Sotelo 04/07/2019 I10 Essential (primary) hypertension PEGGY Sotelo 04/07/2019 E78.5 Hyperlipidemia, unspecified PEGGY Sotelo 04/07/2019 M10.9 Gout, unspecified PEGGY Sotelo 04/07/2019 N18.3 Chronic kidney disease, stage 3 (moderate) PEGGY Sotelo 04/06/2019 R55 Syncope and collapse Anushka Lu MD 04/06/2019 I10 Essential (primary) hypertension Anushka Lu MD 04/06/2019 E78.5 Hyperlipidemia, unspecified Anushka Lu MD 04/06/2019 M10.9 Gout, unspecified Anushka Lu MD 04/06/2019 N18.3 Chronic kidney disease, stage 3 (moderate) Anushka Lu MD Plan of Treatment Future Appointment(s):05/26/2019 1:30 pm - Rad Cruz MD at [facility] Bvaeanzprz10/22/2019 11:00 am - Rosa Mccann, N.P. at [facility]05/16/2019 10:30 am - [facility] Pacer Schedule at [facility]2018 - Rad Cruz MDI12.9 Hypertensive chronic kidney disease with stage 1 through stage 4 chronic kidney disease, or unspecified chronic kidney diseaseNew Medication:Amlodipine Besylate 5 mg - 1 tab by mouth once day at qmwdiazU82.4 Chronic kidney disease, stage 4 (severe) Functional Status Description No Information Available Mental Status Description No Information Available Referrals Description No Information Available
--- OUTSIDE RECORDS SUMMARY | 2019-05-27 15:00 | XMS REPORT | Continuity of Care Document ---
:1935 External Reference #:[id number] Author Name Rosa Mccann N.P. (transmitted by agent of provider Brunilda Ellington) Address [address] [place] [place] [address] Care Team Providers Name Role Phone Fidencio Rodriguez MD - Endocrinology, Care Team Information Optician Apprentice Diabetes & Metabolism Problems Description No Information Available Social History Type Date Description Comments Sex Unknown ETOH Use Denies alcohol use Tobacco Use Start: Unknown Patient has never smoked Recreational Drug Use Denies Drug Use Smoking Status Reviewed: 05/16/19 Patient has never smoked Allergies, Adverse Reactions, Alerts Description No Known Drug Allergies Medications Active Medications SIG Qnty Indications Ordering Provider Date Amlodipine Besylate 1 tab by mouth 90tabs I12.9 Mohammad A. 04/21/2019 5mg once day at MD Nancy [...] hours as Unknown 650mg needed Tablets ER Calcitriol 1 by mouth twice Unknown 0.5mcg daily Capsules Immunizations Description No Information Available Vital Signs Date Vital Result Comment 05/16/2019 10:58am Height 67 inches 5'7" Weight 181.75 lb Heart Rate 72 /min BP Systolic Sitting 132 mmHg Rue large cuff BP Diastolic Sitting 96 mmHg Rue large cuff Respiratory Rate 13 /min BMI (Body Mass Index) 28.5 kg/m2 04/21/2019 1:30pm Height 67 inches 5'7" Weight 194.00 lb Heart Rate 66 /min BP Systolic Sitting 148 mmHg right arm reg cuff BP Diastolic Sitting 93 mmHg right arm reg cuff O2 % BldC Oximetry 97 % room air BMI (Body Mass Index) 30.4 kg/m2 Results Test Acquired Date Facility Test Result H/L Range Note Neph Routine 04/19/2019 [facility] Total Protein 98 mg/dL [address] [place] [address] [phone] Creatinine Random Urine 112.20 mg/dL CBC Auto 04/19/2019 [facility] White Blood 5.1 10^3/uL Normal 3.5-10.[address] [place] [address] [phone] Red Blood Count 4.50 10^6/uL Normal 4.18-5.48 [...] Blood Cells % 0.1 Basic Metabolic 04/19/2019 [facility] Sodium 141 mmol/L Normal 135-[address] [place] [address] [phone] Potassium 3.9 mmol/L Normal 3.5-5.0 Chloride 107 mmol/L Normal 101-111 Co2 Carbon Dioxide 25 mmol/L Normal 22-32 Anion Gap 9 mmol/L Normal 2-11 Glucose 93 mg/dL Normal 70-100 Blood Urea Nitrogen 37 mg/dL High 6-24 Creatinine 3.05 mg/dL High 0.67-1.17 BUN/Creatinine Ratio 12.1 Normal 8-20 Calcium 10.3 mg/dL Normal 8.6-10.3 Egfr Non- 19.8 >60 Egfr 24.0 >60 1 Urinalysis Profile 04/19/2019 [facility] Urine Color Yellow [address] [place] [address] [phone] Urine Appearance Clear Urine Specific [place] 1.012 Normal 1.010-1.030 Urine pH 6.0 Normal [...] (or dialysis) Procedures Date Code Description Status 05/16/2019 32766 Pace Maker Eval W/Iterative Adjment Dual Lead Completed 04/09/2019 76907 Perm Pacemaker Av Sequential Atrial And Ventricular Completed 04/07/2019 80429 ECHO Transthorasic Realtime 2D W Doppler & Color Flow Hosp Completed Medical Devices Description No Information Available Encounters Type Date Location Provider Dx Diagnosis Office Visit 04/21/2019 [facility] Rad Ching I12.9 Hypertensive chronic 1:00p MD Nancy kidney disease w stg 1-4/unsp chr kdny N18.4 Chronic kidney disease, stage 4 (severe) Office Visit 04/17/2019 9:30a [facility] Rosa Mccann, R55 Syncope and Of Clint N.PLeo collapse Z95.0 Presence of cardiac pacemaker Z48.01 Encounter for change or removal of surgical wound dressing 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 syndrome Office Visit 04/07/2019 10:37a [facility] Moshe Mock R55 Syncope and Of Clint Marrero M.D. collapse R00.1 Bradycardia, unspecified Office Visit 04/07/2019 8:47a [facility] Milvia Villavicencio, R55 Syncope and Assoc,pc [place] collapse Hospitalists I10 Essential (primary) hypertension E78.5 Hyperlipidemia, unspecified M10.9 Gout, unspecified N18.3 Chronic kidney disease, stage 3 (moderate) Office Visit 04/06/2019 8:46a [facility] Anushka Charlotteak, R55 Syncope and Assoc,pc collapse Hospitalists I10 Essential (primary) hypertension E78.5 Hyperlipidemia, unspecified M10.9 Gout, unspecified N18.3 Chronic kidney disease, stage 3 (moderate) Assessments Date Code Description Provider 05/16/2019 I49.5 Sick sinus syndrome Rosa S. Ramy, N.P. 05/16/2019 Z95.0 Presence of cardiac pacemaker Ica Pacer Schedule 05/16/2019 I10 Essential (primary) hypertension Rosa S. Foster, N.P. 05/16/2019 I49.5 Sick sinus syndrome Ica Pacer Schedule 05/16/2019 R00.1 Bradycardia, unspecified Rosa S. Foster, N.P. 05/16/2019 E78.5 Hyperlipidemia, unspecified Rosa S. Foster, N.P. 04/21/2019 I12.9 Hypertensive chronic kidney disease with Rad Cruz MD stage 1 through stage 4 chronic kidney disease, or unspecified chronic kidney disease 04/21/2019 N18.4 Chronic kidney disease, stage 4 (severe) Rad Cruz MD 04/17/2019 R55 Syncope and collapse Rosa Mccann, N.P. 04/17/2019 Z95.0 Presence of cardiac pacemaker Rosa Mccann, N.P. 04/17/2019 Z48.01 Encounter for change or removal of surgical Rosa Mccann , N.P. wound dressing 04/17/2019 I12.9 Hypertensive chronic kidney disease with Rosa Arora. Ramy, N.P. stage 1 through stage 4 chronic kidney disease, or unspecified chronic kidney disease 04/17/2019 N18.3 Chronic kidney disease, stage 3 (moderate) Rosa Mccann, N.P. 04/09/2019 I49.5 Sick sinus syndrome Nina [...] Anushka Lu MD Plan of Treatment Future Appointment(s):10/15/2019 1:30 pm - Moshe Marrero M.D. at [facility]08/18/2019 1:30 pm - Ica Pacer Schedule at [facility]05/26/2019 1:30 pm - Rad Cruz MD at [facility] Olnfmeoyhs51/22/2019 - Neisha Houston.P.I49.5 Sick sinus shrmshmeR37 Essential (primary) hypertensionFollow up:PO 3mo OV MB 4-6 moRecommendations:Take blood pressure 1- 2hr AFTER medications Bring in BPs to OV w/ kidney doctor after .R00.1 Bradycardia, zsssxqdxtwaE36.5 Hyperlipidemia, unspecified Functional Status Description No Information Available Mental Status Description No Information Available Referrals Description No Information Available
--- OUTSIDE RECORDS SUMMARY | 2019-05-27 15:00 | XMS REPORT | Continuity of Care Document ---
:1935 External Reference #:[id number] Author Name Dayton Foy M.D. (transmitted by agent of provider Catherine Sheth) Address [address] [place] [address] Care Team Providers Name Role Phone Fidencio Rodriguez M.D. Care Team Information Sports Betting Manager [phone] Problems Description No Information Available Social History [...] Available Vital Signs Date Vital Result Comment 04/25/2019 12:07pm Weight 188.00 lb Height 68 inches 5'8" BMI (Body Mass Index) 28.6 kg/m2 BP Systolic 155 mmHg BP Diastolic 94 mmHg Heart Rate 88 /min O2 % BldC Oximetry 96 % Body Temperature 97.0 F Pain Level 0 03/07/2019 12:48pm Weight 195.00 lb Height 68 inches 5'8" BMI (Body Mass Index) 29.6 kg/m2 BP Systolic 160 mmHg BP Diastolic 89 mmHg Heart Rate 41 /min O2 % BldC Oximetry 98 % Body Temperature 97.9 F Pain Level 0 Results Description No Information Available Procedures Date Code Description Status 01/17/2019 70142 Tympanometry Completed 01/17/2019 21028 Audiometry, Comprehensive Completed Medical Devices Description No Information Available Encounters Type Date Location Provider Dx Diagnosis Office Visit 03/07/2019 [facility] Dayton Foy M.D. H61.23 Impacted cerumen, 1:30p bilateral H90.3 Sensorineural hearing loss, bilateral Office Visit 01/17/2019 1:00p [facility] Dayton Foy H90.3 Sensorineural M.D. hearing loss, bilateral H61.23 Impacted cerumen, bilateral Assessments Date Code Description Provider 03/07/2019 H61.23 Impacted cerumen, bilateral Dayton Foy M.D. 03/07/2019 H90.3 Sensorineural hearing loss, bilateral Dayton Foy M.D. 01/17/2019 H90.3 Sensorineural hearing loss, bilateral Dayton Foy M.D. 01/17/2019 H61.23 Impacted cerumen, bilateral Dayton Foy M.D. Plan of Treatment No Information Available Functional Status Description No Information Available Mental Status Description No Information Available Referrals Description No Information Available
--- OUTSIDE RECORDS SUMMARY | 2019-05-27 15:01 | XMS REPORT | Continuity of Care Document ---
:1935 External Reference #:[id number] Author Name Steven Burks MD, [facility] (transmitted by agent of provider Danielle Lord) Address [address] [place] [address] Care Team Providers Name Role Phone Ulysses Antunez MD - Family Care Team Information Ict Programmer [phone] Medicine Problems Description No Information Available Social History Type Date Description Comments Sex Unknown Allergies, Adverse Reactions, Alerts Description No Information Available Medications Description No Information Available Immunizations Description No Information Available Vital Signs Description No Information Available Results Description No Information Available Procedures Description No Information Available Medical Devices Description No Information Available Encounters Description No Information Available Assessments Description No Information Available Plan of Treatment No Information Available Functional Status Description No Information Available Mental Status Description No Information Available Referrals Description No Information Available
--- OUTSIDE RECORDS SUMMARY | 2019-05-27 15:01 | XMS REPORT | Continuity of Care Document ---
:1935 External Reference #:[id number] Author Name Rosa Mccann N.P. (transmitted by agent of provider Carmen Kevin) Address [address] [place] [address] Care Team Providers Name Role Phone Ulysses Antunez MD - Family Care Team Information Legal Adviser [phone] Medicine Problems Description No Information Available Social History Type Date Description Comments Sex Unknown ETOH Use Denies alcohol use Tobacco Use Start: Unknown Patient has never smoked Recreational Drug Use Denies Drug Use Smoking Status Reviewed: 04/17/19 Patient has never smoked Allergies, Adverse Reactions, Alerts Description No Known Drug Allergies Medications Active Medications SIG Qnty Indications Ordering Provider Date Atenolol 1 by mouth every Unknown 25mg Tablets day Clonidine HCL 1 by mouth twice Unknown 0.2mg Tablets a day Allopurinol 2 by mouth every Unknown 100mg Tablets day Atorvastatin Calcium 1 by mouth every Unknown 40mg day Tablets Vitamin B12 once daily Unknown 3000mcg Tablets Sub Tylenol 8 Hour every 6 hours as Unknown 650mg needed Tablets ER Immunizations Description No Information Available Vital Signs Date Vital Result Comment 04/17/2019 9:40am Height 67 inches 5'7" Weight 194.00 lb with shoes Heart Rate 62 /min BP Systolic Sitting 142 mmHg Rue reg cuff BP Diastolic Sitting 94 mmHg Rue reg cuff Respiratory Rate 13 /min BMI (Body Mass Index) 30.4 kg/m2 Ejection Fraction 60-65% ECHO 04/07/2019 Results Description No Information Available Procedures Description No Information Available Medical Devices Description No Information Available Encounters Description No Information Available Assessments Date Code Description Provider 04/17/2019 R55 Syncope and collapse Rosa Mccann N.P. 04/17/2019 Z95.0 Presence of cardiac pacemaker Rosa Mccann N.PLeo 04/17/2019 Z48.01 Encounter for change or removal of surgical Rosa Mccann N.P. wound dressing 04/17/2019 I10 Essential (primary) hypertension Rosa Mccann N.P. 04/17/2019 N18.3 Chronic kidney disease, stage 3 (moderate) Neisha Houston.Corine Plan of Treatment Future Appointment(s):05/16/2019 11:00 am - Rosa Mccann N.P. at [facility]05/16/2019 10:30 am - [facility] Pacer Schedule at [facility]04/17/2019 - Rosa Mccann N.P.R55 Syncope and gljqotbtM61.0 Presence of cardiac pacemakerFollow up:PO 3 weeks OV w/ MB or me same day at PORecommendations:Keep arm at or below level of shoulder under next appt.Z48.01 Encounter for change or removal of surgical wound juspcpvtS49 Essential (primary) hypertensionRecommendations:Check BP 1x daily at least 1- 2hr after medication. Bring BPs to next OV and BPN18.3 Chronic kidney disease, stage 3 (moderate) Functional Status Description No Information Available Mental Status Description No Information Available Referrals Description No Information Available
--- OUTSIDE RECORDS SUMMARY | 2019-05-27 15:01 | XMS REPORT | Continuity of Care Document ---
:1935 External Reference #:[id number] Author Name Steven Burks MD, [facility] (transmitted by agent of provider Danielle Lord) Address [address] [place] [address] Care Team Providers Name Role Phone Ulysses Antunez MD - Family Care Team Information Traffic Operations Manager [phone] Medicine Problems Description No Information Available Social [...]
--- OUTSIDE RECORDS SUMMARY | 2019-05-27 15:01 | XMS REPORT | Continuity of Care Document ---
:1935 External Reference #:[id number] Author Name Steven Burks MD, [facility] (transmitted by agent of provider Danielle Lord) Address [address] [place] [address] Care Team Providers Name Role Phone Ulysses Antunez MD - Family Care Team Information Change Control Analyst [phone] Medicine Problems Description No Information Available Social [...]
--- OUTSIDE RECORDS SUMMARY | 2019-05-27 15:01 | XMS REPORT | Continuity of Care Document ---
:1935 External Reference #:[id number] Author Name Steven Burks MD, [facility] (transmitted by agent of provider Danielle Lord) Address [address] [place] [address] Care Team Providers Name Role Phone Ulysses Antunez MD - Family Care Team Information Director Of In Service Education [phone] Medicine Problems Description No Information Available Social [...]
[2019-05-28 15:34] LABS: PTH Related Peptide 1.1 pmol/L (< or = 4.2)
[2019-05-28 18:10] LABS: Urine Kappa Total Light Chain 2.98 mg/dL (<0.9000); Urine Kappa/Lambda Light Chain 2.46
[2019-05-30 17:24] LABS: Albumin 62 %; Albumin/Globulin Ratio 1.65 %; Gamma Globulin 16 %; Total Protein(PEP) Urine 34 mg/dL
== END 2019-05-26 12:43 | disposition home health service (06) | DRG 641 ==
LOC: ED 13:45 → MEDTELE 16:28
PROVIDERS: ADMIT Internal Medicine; ATTEND Internal Medicine
DX: E83.52 Hypercalcemia (principal); N18.4 Chronic kidney disease, stage 4 (severe); N17.9 Acute kidney failure, unspecified; E78.00 Pure hypercholesterolemia, unspecified; I10 Essential (primary) hypertension; H91.93 Unspecified hearing loss, bilateral; I49.5 Sick sinus syndrome; I12.9 Hypertensive chronic kidney disease with stage 1 through stage 4 chronic kidney disease, or unspecified chronic kidney disease; M10.9 Gout, unspecified; E55.9 Vitamin D deficiency, unspecified; E78.5 Hyperlipidemia, unspecified; T45.2X5A Adverse effect of vitamins, initial encounter; Z95.0 Presence of cardiac pacemaker; Z97.4 Presence of external hearing-aid; Z87.891 Personal history of nicotine dependence; Y92.9 Unspecified place or not applicable; Z79.899 Other long term (current) drug therapy
CPT/HCPCS: 36415; 70450; 80048; 80053; 82306; 82340; 82397; 82570; 82652; 83735; 83883; 83970; 84100; 84155; 84156; 84165; 84166; 84300; 85025; 93005; 96372; 99284; A9270-GY; G8978-GP-CK; G8979-GP-CI; J0630; J1644; J1650; J3475